=== PATIENT | female | born 1995 | race Caucasian/White ===

== ENCOUNTER 2020-08-09 21:11 | Observation (INO) | payer BC, SELFPAY ==
--- NOTE | 2020-08-09 21:11 | OBADM ---
This patient, Lou Byers, admitted to the OB room Labor/Delivery/Recovery 107 for observation. Patient/family oriented to hospital policies and general routines including ID bracelet, bed and alarms, visiting hours, pain management, procedures, bathroom and other care routines, personal items, smoking policy, room service/diet, and visiting hours. Patient/Family are encouraged to report perceived risks to care and to ask questions if they do not understand what they are told or what they should do.
[2020-08-10 00:59] VITALS: BMI 26.5
--- NOTE | 2020-09-02 19:45 | PM.OBTRLD ---
OB - Triage/Final Diagnosis Final Diagnosis (1) Uterine contractions: Status: Acute
== END 2020-08-10 01:08 | disposition home or self-care (01) ==
PROVIDERS: Admitting Provider Obstetrics & Gynecology; Visit Provider Obstetrics & Gynecology
DX: O60.00 Preterm labor without delivery, unspecified trimester (principal); Z3A.00 Weeks of gestation of pregnancy not specified
CPT/HCPCS: G0378; G0379

== ENCOUNTER 2020-08-20 06:09 | Inpatient (IN) | payer BC, SELFPAY ==
[2020-08-20] VITALS (103 sets, daily range): BP systolic 96–160; BP diastolic 46–95; PULSE 62–149; RESP 16–18; TEMP 36.4–37.7; O2SAT 91–100; BMI 26.2
[2020-08-20 06:47] LABS: Basophils Absolute Auto 0.1 K/mm3 (0.0-0.1); Basophils Percent Auto 0.7 % (0.2-1.2); Eosinophils Absolute Auto 0.4 K/mm3 (0-0.3); Eosinophils Percent Auto 2.7 % (0-4.4); Hematocrit 34.6 % (37.0-47.0); Hemoglobin 11.4 g/dL (12.0-15.0); Immature Granulocyte Absolute 0.19 K/mm3 (0.00-0.031); Immature Granulocyte Percent A 1.4 % (0-0.5); Immature Platelet Fraction Pct 21.8 % (0.9-11.2); Lymphocytes Absolute Auto 2.55 K/mm3 (0.9-3.2); Lymphocytes Percent Auto 18.8 % (18.3-44.2); Mean Corpuscular HGB Conc 32.9 g/dl (32-36); Mean Corpuscular Hemoglobin 28.9 pg (26-34); Mean Corpuscular Volume 87.6 fl (80-100); Monocytes Percent Auto 7.1 % (2.6-8.5); Neutrophils Absolute Auto 9.4 K/mm3 (1.3-6.7); Neutrophils Percent Auto 69.3 % (45.5-73.1); Platelet Count Result 164 k/mm3 (150-375); Red Blood Count 3.95 M/mm3 (4.2-5.4); Red Cell Distribution Width 12.9 % (11.5-14.5); White Blood Count 13.6 K/mm3 (4.5-10.0)
[2020-08-20] MEDS: LACTATED RINGERS 1,000 ML 125 ML IV CONT ×2 (06:49→10:03)
[2020-08-20] MEDS: OXYTOCIN 30 UNITS/NS 500 ML 30 UNITS/500 ML BAG 4 UNITS IV CONT (06:55)
--- NOTE | 2020-08-20 07:02 | LDADM ---
This patient, Lou Byers, was admitted to Labor/Delivery/Recovery 106 on 08/20/20 at 06:09. Plans for labor, pain management and were discussed with patient. Patient/family oriented to hospital policies and general routines including ID bracelet, bed and alarms, visiting hours, pain management, procedures, bathroom and other care routines, personal items, smoking policy, room service/diet and guest tray routines, infant security routines, and visiting hours. Patient/Family are encouraged to report perceived risks to care and to ask questions if they do not understand what they are told or what they should do. See OBIX for further documentation.
--- NOTE | 2020-08-20 07:46 | WPDOBADMIT ---
Obstetrics - Admit Note Admission Note: 25 y/o G1 @ 40w2d here for elective induction of labor. record reviewed. No pertinent additions to the history and/or any subsequent changes in the physical findings that are not consistent with the expected course of the were found. Additions to the history and/or subsequent changes in the physical findings follow. None.
--- NOTE | 2020-08-20 07:47 | PM.OBPNLAB ---
Pain Control Date/time seen: 08/20/20 07:47 4100/-2 AROM moderate amount of clear odorless fluid.
[2020-08-20] MEDS: fentaNYL CITRATE INJ (*CRX) 100 MCG/2 ML VIAL IV PUSH (07:53)
[2020-08-20] MEDS: ONDANSETRON INJ 4 MG/2 ML VIAL IV PUSH (07:53)
[2020-08-20] MEDS: LACTATED RINGERS 1,000 ML 999 ML IV CONT (07:58)
[2020-08-20 12:08] LABS: Rapid Plasma Reagin Non-Reactive (NonReactive)
--- NOTE | 2020-08-20 15:33 | P.PCNOB_ITS ---
OB - Delivery Note Procedure Delivery date: 08/20/20 Intrapartal events: None Induction method: per pitocin protocol Delivery monitor: external FHT and external uterine Route of delivery: Laceration Description: Perineal - 2nd Degree Delivery repair: vicryl Quantitative Blood Loss (ml): 93 Anesthesia type: Epidural [place] Baby Date of : 08/20/20 Time of : 14:49 Weeks of gestation at delivery: 40 Infant gender: Female Weight (pounds): 7 Weight (ounces): 15 presentation: vertex position: Left Occiput Anterior Placenta delivery description: Spontaneous score one minute: 8 score five minutes: 9 Narrative: Called over to evaluate d/t pt pushing for 2.5 hours with little progress. Per staff pt has very poor and disorganized push effort and possible posterior position. We were able to see significant progress within 10 minutes of my arrival and decided to proceed with pushing. Delivery per Z. Due SNM. not vigorous initially so cord was clamped then infant became vigorous. Mother and baby in stable condition. Cord gasses collected and handed off to staff.
[2020-08-20] MEDS: OXYTOCIN 30 UNITS/NS 500 ML 30 UNITS/500 ML BAG 125 UNITS IV CONT (15:43)
[2020-08-20] MEDS: IBUPROFEN 600 MG TABLET PO (16:26)
[2020-08-20] MEDS: WITCH HAZEL 40 PADS 1 PAD TOPICAL (16:27)
[2020-08-20] MEDS: BENZOCAINE 20% AER SPR (*SP) 56 GM CAN 1 SPRAY TOPICAL (16:27)
--- NOTE | 2020-08-20 18:27 | PC.NURSE ---
Patient transferred to post room #291 via wheelchair. Support person present. Oriented to unit, room, information board, rooming in, admission packet and security measures. Patient verbalizes understanding.
[2020-08-20] MEDS: ACETAMINOPHEN 325 MG TABLET 650 MG PO (18:52)
[2020-08-21] MEDS: IBUPROFEN 600 MG TABLET PO ×3 (01:55→17:15)
[2020-08-21 04:44] LABS: Hemoglobin 9.2 g/dL (12.0-15.0)
--- NOTE | 2020-08-21 07:16 | PM.OBPNVD ---
OB - PN: Subj Subjective Date/time seen: 08/21/20 07:16 Patient comments: no complaints baby status: doing well [place] feeding status: exclusively bottle feeding Narrative: Normal lochia. E/A/V. OB - PN: Obj Data Labs CBC & Chem 7: 08/21/20 03:59 Labs: Laboratory Results - last 24 hr 08/20/20 08/20/20 08/21/20 06:35 06:35 03:59 Hgb 9.2 L Hct 28.0 L RPR Non-reactive Blood Type O Positive Antibody Screen Negative OB - PN A/P Plan day: 1 Plan: routine care Comments: Doing well. Home tomorrow. Time Spent With Patient Time: Total time spent is greater than 50% in coordination of care (as documented) at patient's floor/unit and/or counseling patient: Time with patient: less than 15 minutes Exam Narrative: Exam Narrative: NAD abdomen soft, nontender, fundus firm below the umbilicus Extremities nontender, 1+ edema
[2020-08-21 08:00] VITALS: BP 114/75; PULSE 60; RESP 16; TEMP 36.6; O2SAT 94
[2020-08-21] MEDS: POLYSACCHARIDE IRON COMPLEX 150 MG CAPSULE PO ×2 (08:50→17:15)
[2020-08-21] MEDS: DOCUSATE SODIUM 100 MG CAPSULE PO ×2 (08:50→17:15)
--- NOTE | 2020-08-21 11:05 | WPDANLDPN2 ---
Anes-Prog Note L&D Date/Time: 08/21/20 11:05 Comfortable throughout: labor and delivery Neuraxial method: epidural Epidural/Spinal procedure site: clean & non-tender Neuro status: Neuro function grossly intact. Cardiovascular status: normal Respiratory status: normal Airway patency: baseline Mental status: baseline Post-Op hydration status: normal Vital Signs: Last Vital Signs Temp 36.6 C 08/21/20 08:00 Pulse 60 08/21/20 08:00 Resp 16 08/21/20 08:00 BP 114/75 08/21/20 08:00 Pulse Ox 94 08/21/20 08:00 Pain score (VAS): 0 I/O: Intake & Output 08/20/20 08/21/20 08/21/20 23:59 07:59 15:59 Output Total 93 Balance -93 Post-procedural complaints: none Patient feedback: Patient satisfied with anesthetic care.
[2020-08-21] MEDS: ACETAMINOPHEN 325 MG TABLET 650 MG PO (13:09)
[2020-08-21 20:00] VITALS: BP 117/62; PULSE 66; RESP 16; TEMP 36.2; O2SAT 99
[2020-08-22] MEDS: IBUPROFEN 600 MG TABLET PO ×2 (01:10→08:31)
[2020-08-22] MEDS: ACETAMINOPHEN 325 MG TABLET 650 MG PO (01:10)
--- NOTE | 2020-08-22 07:56 | PM.OBPNVD ---
OB - PN: Subj Subjective Date/time seen: 08/22/20 07:56 Patient comments: no complaints baby status: doing well OB - PN: Obj Data Labs CBC & Chem 7: 08/21/20 03:59 OB - PN A/P Plan day: 2 Plan: routine care and discharge home (F/U in 4 weeks) Time Spent With Patient Time: Total time spent is greater than 50% in coordination of care (as documented) at patient's floor/unit and/or counseling patient: Time with patient: less than 15 minutes Review of Systems Review of Systems: All systems reviewed & are unremarkable except as noted in HPI and below Exam Narrative: Exam Narrative: Fundus firm and vaginal flow controlled. No lower ext redness, warmth, or edema. Negative homans. Const: General: comfortable Chest: Breast/axilla inspection: normal inspection of the breasts Resp: Effort & Inspection: normal respiratory effort Cardio: Rate: regular rate GI: GI Palp: Yes Soft to palpation Psych: Appearance: grossly normal Affect: normal affect Attitude: cooperative Thought content: Yes Normal thought content present Judgement: Good judgement present (Psych)
[2020-08-22] MEDS: DOCUSATE SODIUM 100 MG CAPSULE PO (08:32)
[2020-08-22] MEDS: POLYSACCHARIDE IRON COMPLEX 150 MG CAPSULE PO (08:32)
[2020-08-22 08:40] VITALS: BP 123/87; PULSE 64; RESP 18; TEMP 36.9
[2020-08-23 08:07] VITALS: BP 127/87; PULSE 73; RESP 20; TEMP 36.8; O2SAT 100
--- NOTE | 2020-09-12 08:05 | P.DS_ITS ---
DS: Admitting Diagnosis Admitting Diagnosis Admitting Diagnosis: Elective induction DS: Discharge Diagnosis Discharge Diagnosis (1) Vaginal delivery: Code(s): O80 - Encounter for full-term uncomplicated delivery Status: Acute OB - DS: Summary OB Procedures : None OB Procedures Intrapartum: Spontaneous Vag Delivery OB Procedures: : None Time Spent with Patient Time attestation: Total time spent providing and/or coordinating discharge services: Discharge Plan Discharge Attending physician on discharge: Emily Lara Consulting providers: Emily Lara ; Milagros Garcia Discharging Clinician: Emily Lara Patient Disposition: Home, Self-Care Activity: pelvic rest Diet: as tolerated Discharge Instructions: Education: Mom and Baby Guide Given to: Mother Follow-Up: Call your delivering provider's office for an appointment to be seen in: Call office for appointment Mom and baby should come to the [facility] for the follow-up appointment. Appointment Date/Time: August 23, 2020 at 8:00 am What to expect at your follow-up visit: Blood Pressure Check Physical Assessment Call [phone] if you are unable to keep your appointment time. BREAST CARE: * Wear a snug supportive bra. * For engorgement discomfort: Breast Feeding: * Apply warm moist washcloths * Express milk as needed to relieve engorgement * Wear loose clothing Bottle Feeding: * May apply ice packs EPISIOTOMY/PERINEAL CARE: * Until bleeding stops, use your christina bottle after urinating * Change your pad frequently throughout the day * You may take sitz baths several times a day (fill your bathtub with warm water and soak for 20 minutes.) Do NOT bathe in the water * No tub baths until seen by your physician - You may shower ACTIVITY: * Rest as much as possible. * Do not exercise or lift anything heavier than your baby (such as laundry or other children.) * Avoid stairs or driving as much as possible. * Do not put anything into the vagina. No douching, tampons, or sexual activity until seen by physician. NOTIFY PHYSICIAN IF YOU HAVE ANY QUESTIONS OR IF ANY OF THE FOLLOWING SYMPTOMS OCCUR: * If your episiotomy or incision becomes red, swollen, or more painful than what you have experienced in the hospital. * If your vaginal bleeding becomes foul smelling. * If your vaginal bleeding becomes more heavy than a period or if your bleeding changes from pink to bright red. However, you may pass an occasional walnut- sized clot once or twice for the first week . * If you experience a sharp, shooting pain in you calves. * If you discover a hard, reddened area on your breast or if you experience flu- like symptoms. DIET: * Eat regular, well-balanced meals. * Drink plenty of fluids daily. If , drink to thirst. Stand Alone Forms: General Discharge Information Follow-up/Referrals: Emily Lara CNM [Certified Nurse Platform Power Technician] - Discharge Medications: New polysaccharide iron complex 150 mg iron Capsule 150 mg PO BIDWM Qty: 30 RF: 0 Continued PNV cmb#95-ferrous fumarate-FA [] 28 mg iron- 800 mcg Tablet 1 tablet PO DAILY RF: 0 Date of admission: 08/20/20 06:09 Primary Care Provider: PHYSICIAN,AUTOMATIC SPREADER OPERATOR Admitting Provider: Rita Nj Attending physician on admission: Natasha
== END 2020-08-22 11:10 | disposition home or self-care (01) | DRG 807 ==
LOC: ANHLDR 06:11 → ANHOB2 18:09
PROVIDERS: Advanced Practice Midwife; Admitting Provider Obstetrics & Gynecology; Visit Provider Obstetrics & Gynecology
DX: O70.1 Second degree perineal laceration during delivery (principal); Z37.0 Single live birth; Z3A.40 40 weeks gestation of pregnancy; Z23 Encounter for immunization
CPT/HCPCS: 36415; 85014; 85018; 85025; 85055; 86592; 86850; 86900; 86901; 90471; 90653; A9270; G0008; J2405; J2590; J2795; J3010; J7120

== ENCOUNTER 2023-07-21 06:33 | Observation (INO) | payer BC, SELFPAY ==
[2023-07-21] VITALS (11 sets, daily range): BP systolic 105–121; BP diastolic 60–76; PULSE 63–146; O2SAT 96–100; BMI 25.0
[2023-07-21 07:17] LABS: Appearance Urine Cloudy (Clear); Bacteria Urine 1+ /hpf; Bilirubin Urine Negative (Negative); Blood Urine Negative (Negative); Color Urine Yellow (Yellow); Glucose Urine UA Negative (Negative); Ketones Urine Trace mg/dL (Negative); Leukocyte Esterase Ur 1+ LEU/UL (Negative); Nitrate Urine Negative (Negative); Non Pathogenic Casts 0-2; Protein Urine Trace mg/dL (Negative); RBC Urine 0-2 /hpf (0-2); Specific Grav Ur 1.014 (1.001-1.035); Squamous Epithelial Cell Urine Moderate /hpf (Few); WBC Urine 21-50 /hpf
[2023-07-21 07:27] LABS: Add Urine Microscopic? YES
[2023-07-21] MEDS: DEXTROSE 5%/LACTATED RINGERS 1,000 ML 999 ML IV CONT (07:28)
[2023-07-21] MEDS: ACETAMINOPHEN 500 MG TABLET 1000 MG PO (07:29)
[2023-07-21] MEDS: ONDANSETRON INJ 4 MG/2 ML VIAL IV PUSH (07:29)
[2023-07-21] MEDS: FAMOTIDINE 20 MG/2 ML VIAL IV PUSH (07:29)
--- NOTE | 2023-07-21 07:38 | ADMGEN ---
This patient, Lou Byers, was admitted to OB Post 116-00. Patient/family oriented to hospital policies and general routines including ID bracelet, bed and alarms, visiting hours, pain management, procedures, bathroom and other care routines, personal items, smoking policy, room service/diet, and visiting hours. Information on how to activate the Rapid Response Team has been discussed. Patient/Family are encouraged to report perceived risks to care and to ask questions if they do not understand what they are told or what they should do.
--- NOTE | 2023-07-21 08:36 | PC.NURSE ---
Spoke with Dr. Nj regarding discharge of patient. Patient states symptoms have improved. Ok to discharge per Dr. Nj. Appointment for tomorrow scheduled with Lou Petersen.
--- NOTE | 2023-07-21 08:40 | PC.NURSE ---
see OBIX note for monitor tracing
--- NOTE | 2023-08-16 21:20 | P.PNOB_ITS ---
OB - Triage/Final Diagnosis Visit Information Comments/Additional reasons for admission: I have assessed the risk for this patient, Lou Byers, and determined that she would benefit from observation care. Evaluation Laboratory results: Laboratory Tests 07/21/23 07:04 Urine Color Yellow Urine Appearance Cloudy H Urine pH 8.0 Ur Specific [place] 1.014 Urine Protein Trace Urine Glucose (UA) Negative Urine Ketones Trace H Ur Blood (Man) Negative Urine Nitrate Negative Urine Bilirubin Negative Urine Urobilinogen 1.0 Leukocyte Esterase Rfl 1+ H Urine RBC 0-2 Urine WBC 21-50 H Ur Squamous Epith Cells Moderate Urine Bacteria 1+ H Urine Casts 0-2 Final Diagnosis (1) Nausea and vomiting: Code(s): R11.2 - Nausea with vomiting, unspecified Status: Acute
== END 2023-07-21 08:38 | disposition home or self-care (01) ==
PROVIDERS: Admitting Provider Obstetrics & Gynecology; PCP Advanced Practice Midwife; Visit Provider Obstetrics & Gynecology
DX: O21.0 Mild hyperemesis gravidarum (principal); Z3A.38 38 weeks gestation of pregnancy; O36.8130 Decreased fetal movements, third trimester, not applicable or unspecified
CPT/HCPCS: 81001; 87086; 87088; 96361; 96374; 96375; A9270; G0378; G0379; J2405; J7121

== ENCOUNTER 2023-07-23 16:55 | Inpatient (IN) | payer BC, SELFPAY ==
[2023-07-23] VITALS (94 sets, daily range): BP systolic 110–153; BP diastolic 58–108; PULSE 72–114; RESP 16; TEMP 36.6–37.3; O2SAT 69–100; BMI 25.0
--- NOTE | 2023-07-23 16:55 | LDADM ---
This patient, Lou Byers, was admitted to Labor/Delivery/Recovery 105 on 07/23/23 at 16:55. Plans for labor, pain management and were discussed with patient. Patient/family oriented to hospital policies and general routines including ID bracelet, bed and alarms, visiting hours, pain management, procedures, bathroom and other care routines, personal items, smoking policy, room service/diet and guest tray routines, infant security routines, and visiting hours. Patient/Family are encouraged to report perceived risks to care and to ask questions if they do not understand what they are told or what they should do. See OBIX for further documentation.
[2023-07-23] MEDS: LACTATED RINGERS 1,000 ML 125 ML IV CONT ×3 (17:33→21:13)
[2023-07-23 17:47] LABS: Basophils Absolute Auto 0.1 K/mm3 (0.0-0.1); Basophils Percent Auto 0.4 % (0.2-1.2); Eosinophils Absolute Auto 0.3 K/mm3 (0-0.3); Eosinophils Percent Auto 2.5 % (0-4.4); Hematocrit 33.2 % (37.0-47.0); Hemoglobin 10.1 g/dL (12.0-15.0); Immature Granulocyte Percent A 0.9 % (0-0.5); Immature Platelet Fraction Pct 24.2 % (0.9-11.2); Lymphocytes Absolute Auto 2.32 K/mm3 (0.9-3.2); Lymphocytes Percent Auto 20.4 % (18.3-44.2); Mean Corpuscular HGB Conc 30.4 g/dl (32-36); Mean Corpuscular Hemoglobin 25.7 pg (26-34); Mean Corpuscular Volume 84.5 fl (80-100); Mean Platelet Volume 13.8 fl (7.4-10.4); Monocytes Absolute Auto 0.9 K/mm3 (0.1-0.6); Monocytes Percent Auto 8.2 % (2.6-8.5); Neutrophils Absolute Auto 7.7 K/mm3 (1.3-6.7); Neutrophils Percent Auto 67.6 % (45.5-73.1); Platelet Count Result 150 k/mm3 (150-375); Red Blood Count 3.93 M/mm3 (4.2-5.4); Red Cell Distribution Width 13.9 % (11.5-14.5); White Blood Count 11.4 K/mm3 (4.5-10.0)
--- NOTE | 2023-07-23 18:51 | WPDANESEPP ---
Anes - Eval Pre Procedure Procedure: Labor epidural Date/Time: 07/23/23 18:51 Surgeon: Clem Preop Diagnosis: Abdominal pain with contractions Pre Op Diagnosis: Labor Patient Data Age: 28 Gender: F Height: 1.6 m Weight: 64 kg Last Vital Signs Pulse 90 07/23/23 18:46 BP 137/91 H 07/23/23 18:46 Pulse Ox 98 07/23/23 18:48 Allergies Allergy/AdvReac Type Severity Reaction Status Date / Time No Known Allergies Allergy Verified 07/21/23 07:47 Home Medications Medication Instructions Recorded Confirmed Type vit no.95-ferrous 1 tablet PO DAILY 07/19/20 07/23/23 History fumarate 28 mg-folic acid 800 mcg tablet () polysaccharide iron complex 150 mg 150 mg PO BIDWM #30 caps 08/22/20 07/23/23 Rx iron capsule levothyroxine 50 mcg tablet 50 mcg PO DAILY 07/06/23 07/21/23 History Laboratory Tests 07/23/23 17:27 WBC 11.4 H K/mm3 (4.5-10.0) RBC 3.93 L M/mm3 (4.2-5.4) Hgb 10.1 L g/dL (12.0-15.0) Hct 33.2 L % (37.0-47.0) MCV 84.5 fl (80-100) MCH 25.7 L pg (26-34) MCHC 30.4 L g/dl (32-36) RDW 13.9 % (11.5-14.5) Plt Count 150 k/mm3 (150-375) MPV 13.8 H fl (7.4-10.4) Immature Gran % (Auto) 0.9 H % (0-0.5) Neut % (Auto) 67.6 % (45.5-73.1) Lymph % (Auto) 20.4 % (18.3-44.2) [place] % (Auto) 8.2 % (2.6-8.5) Eos % (Auto) 2.5 % (0-4.4) Baso % (Auto) 0.4 % (0.2-1.2) Lymph # (Auto) 2.32 K/mm3 (0.9-3.2) [place] # (Auto) 0.9 H K/mm3 (0.1-0.6) Eos # (Auto) 0.3 K/mm3 (0-0.3) Baso # (Auto) 0.1 K/mm3 (0.0-0.1) Abs Immat Gran (auto) 0.10 H K/mm3 (0.00-0.031) Absolute Neuts (auto) 7.7 H K/mm3 (1.3-6.7) Absolute Nucleated RBC 0.0 K/mm3 (0.0-0.012) Nucleated RBC % 0.0 % (0.0-0.2) % Immature Plt Fraction 24.2 H % (0.9-11.2) RPR Pending Blood Type O Positive Antibody Screen Pending : gestational age HCG: positive Patient hx anesthesia problems: none Family hx anesthesia problems: none Results Review: All pre-operative results and documents have been reviewed as part of the pre-operative evaluation. [facility] Past Medical History Medical History (Updated 07/23/23 @ 18:51 by Eddie Lubin CRNA) Hypothyroidism and not yet delivered Family History Family History Other No pertinent family history Social History Social History Smoking status: Never smoker Second hand tobacco smoke exposure: No Substance use: never Lack of Transportation: No Lack of Food: Never True Current Housing: I Have Housing Concerned About Future Housing: No Difficulty Paying Gas/Electric Bills: No Difficulty Paying for Meds: No Currently Unemployed: No Education: High School Diploma/GED Difficulty w/ Childcare or Family Care: No Gender identity (if verbalized by the patient): Female Spiritual care concerns: No Exam Day of Procedure 07/23/23 18:51 Patient weight: normal
[2023-07-24] VITALS (126 sets, daily range): BP systolic 114–145; BP diastolic 62–95; PULSE 65–104; RESP 16; TEMP 36.2–37.2; O2SAT 79–100
[2023-07-24] MEDS: OXYTOCIN 30 UNITS/NS 500 ML 30 UNITS/500 ML BAG IV CONT (05:10)
[2023-07-24] MEDS: LACTATED RINGERS 1,000 ML 125 ML IV CONT (05:26)
--- NOTE | 2023-07-24 07:30 | WPDOBADMIT ---
Obstetrics - Admit Note Admission Note: record reviewed. No pertinent additions to the history and/or any subsequent changes in the physical findings that are not consistent with the expected course of the were found. Pt arrived in labor, comfortable with epidural. SVE 5/80/-2 AROM large amount of clear, odorless fluid, anticipate vaginal delivery Additions to the history and/or subsequent changes in the physical findings follow. None.
--- NOTE | 2023-07-24 09:15 | P.PCNOB_ITS ---
OB - Vaginal Delivery Note Procedure Delivery date: 07/24/23 Delivery augmentation: Rupture of Membranes and Pitocin Delivery monitor: External FHT and Internal FHT Route of delivery: Laceration Description: None Specimen: No Quantitative Blood Loss (ml): 75 Anesthesia type: Epidural Disposition: Floor [place] Baby Date of : 07/24/23 Time of : 09:06 Weeks of gestation at delivery: 38 gender: Female presentation: vertex position: Left Occiput Anterior Placenta delivery description: Spontaneous Cord Vessel Description: 3 Vessels and Delayed Cord Clamping score one minute: 8 score five minutes: 9 Narrative: baby and mother in stable condition
[2023-07-24] MEDS: OXYTOCIN 30 UNITS/NS 500 ML 30 UNITS/500 ML BAG 125 UNITS IV CONT (09:30)
[2023-07-24] MEDS: IBUPROFEN 600 MG TABLET PO ×3 (10:45→23:00)
[2023-07-24] MEDS: ACETAMINOPHEN 325 MG TABLET 650 MG PO (10:46)
--- NOTE | 2023-07-24 12:29 | OBPPTRN ---
1223-Patient transferred to post room #282 via wheelchair. Support person present. Oriented to unit, room, information board, rooming in, admission packet and security measures. Patient verbalizes understanding.
[2023-07-24 15:18] LABS: Rapid Plasma Reagin Non-Reactive (NonReactive)
[2023-07-24] MEDS: DOCUSATE SODIUM 100 MG CAPSULE PO (16:55)
[2023-07-25] MEDS: IBUPROFEN 600 MG TABLET PO (04:25)
[2023-07-25 05:38] LABS: Hematocrit 32.7 % (37.0-47.0); Hemoglobin 9.8 g/dL (12.0-15.0)
--- NOTE | 2023-07-25 06:42 | PM.OBPNVD ---
OB - PN: Subj Subjective Date/time seen: 07/25/23 06:42 Interval history: pp day 1 doing well pain managed OB - PN: Obj Data Labs 07/25/23 04:16 Labs: Laboratory Results - last 24 hr 07/23/23 07/25/23 17:27 04:16 Hgb 9.8 L Hct 32.7 L RPR Non-reactive OB - PN A/P Plan day: 1 Plan: routine care and discharge home Time Spent With Patient Time: Total time spent is greater than 50% in coordination of care (as documented) at patient's floor/unit and/or counseling patient: Review of Systems Review of Systems: All systems reviewed & are unremarkable except as noted in HPI and below Exam Const: General: cooperative, healthy appearing and comfortable Resp: Effort & Inspection: normal respiratory effort Cardio: Rate: regular rate Rhythm: regular rhythm GI: Other: soft Skin: General skin exam: normal color
--- NOTE | 2023-07-25 06:44 | PM.OBDSVD ---
DS: Admitting Diagnosis Discharge Date 07/25/23 Admitting Diagnosis labor DS: Discharge Diagnosis Discharge Diagnosis (1) Vaginal delivery: Code(s): O80 - Encounter for full-term uncomplicated delivery Status: Acute OB - DS: Summary OB Procedures : None OB Procedures Intrapartum: Spontaneous Vag Delivery OB Procedures: : None Peripartum Data Laceration Description: None Time Spent with Patient Time attestation: Total time spent providing and/or coordinating discharge services: DS: Data Data Completed and Pending Labs on day of discharge: Labs from last 24 hours 07/25/23 07/23/23 04:16 17:27 Hgb 9.8 L Hct 32.7 L RPR Non-reactive Discharge Plan Discharge Attending physician on discharge: Rita Nj Discharging Clinician: Lou Petersen Patient Disposition: Home, Self-Care Activity: pelvic rest Diet: regular Patient Instructions: Antibiotic Form Stand Alone Forms: General Discharge Information Follow-up/Referrals: Lou Petersen CNM [Primary Care Provider] - 4 Weeks Discharge Medications: New ibuprofen 600 mg Tablet 600 mg PO Q6H PRN (Reason: Cramping) Qty: 30 0RF Continued PNV cmb#95-ferrous fumarate-FA [] 28 mg iron- 800 mcg Tablet 1 tablet PO DAILY polysaccharide iron complex 150 mg iron Capsule 150 mg PO BIDWM Qty: 30 0RF levothyroxine 50 mcg Tablet 50 mcg PO DAILY Date of admission: 07/23/23 16:55 Primary Care Provider: Lou Petersen Admitting Provider: Rita Nj Attending physician on admission: Rita Nj Condition: Stable
[2023-07-25] MEDS: POLYSACCHARIDE IRON COMPLEX 150 MG CAPSULE PO (09:22)
[2023-07-25 09:23] VITALS: BP 137/88; PULSE 61; RESP 16; TEMP 36.4; O2SAT 100
[2023-07-25] MEDS: DOCUSATE SODIUM 100 MG CAPSULE PO (09:23)
[2023-07-25] MEDS: ACETAMINOPHEN 325 MG TABLET 650 MG PO (09:23)
--- NOTE | 2023-07-25 12:59 | WPDANLDPN2 ---
Anes-Prog Note L&D Date/Time: 07/25/23 12:59 Comfortable throughout: labor and delivery Neuraxial method: epidural Epidural/Spinal procedure site: clean & non-tender Neuro status: Neuro function grossly intact. Cardiovascular status: normal Respiratory status: normal Airway patency: baseline Mental status: baseline Post-Op hydration status: normal Vital Signs: Last Vital Signs Temp 97.9 F 07/24/23 23:00 Pulse 70 07/24/23 23:00 Resp 16 07/24/23 23:00 BP 114/62 07/24/23 23:00 Pulse Ox 100 07/24/23 16:00 O2 Del Method Room Air 07/24/23 23:00 Pain score (VAS): 0 I/O: Intake & Output 07/24/23 07/25/23 07/25/23 23:59 07:59 15:59 Intake Total 350 Balance 350 Post-procedural complaints: none Patient feedback: Patient satisfied with anesthetic care.
[2023-07-27 11:30] VITALS: BP 132/94; PULSE 72; RESP 18; TEMP 37.3; O2SAT 100
== END 2023-07-25 14:28 | disposition home or self-care (01) | DRG 807 ==
LOC: ANHLDR 07-24 08:40 → ANHOB2 07-24 12:24
PROVIDERS: Admitting Provider Obstetrics & Gynecology; PCP Advanced Practice Midwife; Referring Provider Advanced Practice Midwife; Visit Provider Obstetrics & Gynecology
DX: O43.113 Circumvallate placenta, third trimester (principal); Z37.0 Single live birth; Z3A.38 38 weeks gestation of pregnancy
CPT/HCPCS: 36415; 85014; 85018; 85025; 85055; 86592; 86850; 86900; 86901; A9270; J2590; J2795; J7120

== ENCOUNTER 2023-11-15 20:53 | Emergency (ER) | payer BC, SELFPAY ==
--- NOTE | ~2023-11-15 | XR_ITS ---
Clinical Indication: Cough PA and lateral views of the chest: Comparison: None Findings: The lungs are clear, without evidence of focal consolidation or pleural effusion. Cardiome diastinal silhouette is within normal limits. Bones and soft tissues are unremarkable. Impression: Clear lungs. Reviewed, dictated and finalized at location . Impression: Clear lungs.
--- NOTE | ~2023-11-15 | CT_ITS ---
CT of the Abdomen and Pelvis: Indication: Abdominal pain Technique: 2.5 mm axial scans were obtained through the abdomen and pelvis following intravenous adm inistration of 100 cc of Omnipaque 350. Dose reduction technique was used on this scan by utilizing a utomated exposure control and iterative reconstruction technique. The dose-length product (DLP) was 1 96.19 mGy-cm. Findings: Scans through the lung bases are unremarkable. The liver, spleen, pancreas, gallbladder, adrenals and kidneys are within normal limits. No evidence of aortic aneurysm. No lymphadenopathy. No bowel obstruction or bowel wall thickening. No definite acute inflammatory process seen in the abd omen pelvis. Images through the pelvis were performed. Urinary bladder unremarkable. No pelvic mass seen. No ascit es. Impression: No significant abnormalities seen. Reviewed, dictated and finalized at [facility]. Impression: No significant abnormalities seen.
[2023-11-15 20:57] VITALS: BP 128/110; PULSE 126; RESP 18; TEMP 36.4; O2SAT 98
[2023-11-15 21:18] LABS: Basophils Absolute Auto 0.1 K/mm3 (0.0-0.1); Basophils Percent Auto 0.7 % (0.2-1.2); Eosinophils Absolute Auto 0.6 K/mm3 (0-0.3); Eosinophils Percent Auto 3.4 % (0-4.4); Hematocrit 48.3 % (37.0-47.0); Hemoglobin 15.9 g/dL (12.0-15.0); Immature Granulocyte Absolute 0.12 K/mm3 (0.00-0.031); Immature Granulocyte Percent A 0.6 % (0-0.5); Immature Platelet Fraction Pct 21.9 % (0.9-11.2); Lymphocytes Absolute Auto 2.81 K/mm3 (0.9-3.2); Lymphocytes Percent Auto 15.2 % (18.3-44.2); Mean Corpuscular HGB Conc 32.9 g/dl (32-36); Mean Platelet Volume 13.4 fl (7.4-10.4); Monocytes Absolute Auto 1.2 K/mm3 (0.1-0.6); Monocytes Percent Auto 6.7 % (2.6-8.5); Neutrophils Absolute Auto 13.6 K/mm3 (1.3-6.7); Neutrophils Percent Auto 73.4 % (45.5-73.1); Platelet Count Result 221 k/mm3 (150-375); Red Blood Count 5.49 M/mm3 (4.2-5.4); Red Cell Distribution Width 12.7 % (11.5-14.5); White Blood Count 18.5 K/mm3 (4.5-10.0)
[2023-11-15 21:24] LABS: Alanine Aminotransferase 28 U/L (6-35); Albumin Level 5.2 g/dL (3.5-5.1); Alkaline Phosphatase 91 U/L (38-126); Anion Gap 12 mmol/L (8-16); Aspartate Amino Transferase 24 U/L (14-36); Bilirubin,Total 0.9 mg/dL (0.2-1.3); Blood Urea Nitrogen 7 mg/dL (7-17); Calcium 9.7 mg/dL (8.4-10.2); Carbon Dioxide 23 mmol/L (22-30); Chloride 107 mmol/L (98-107); Estimated CRCL calculation 75 ml/min; Estimated Glomerular Filt Rate > 60; Glucose 103 mg/dL (65-110); Lipase 72 U/L (23-300); Potassium 3.6 mmol/L (3.4-5.0); Sodium 142 mmol/L (137-145)
[2023-11-15 21:54] VITALS: BP 127/97; PULSE 108; RESP 13; TEMP 36.7; O2SAT 98
[2023-11-15] MEDS: SODIUM CHLORIDE 0.9% IV 1,000 ML 999 ML IV CONT (22:16)
[2023-11-15] MEDS: ONDANSETRON INJ 4 MG/2 ML VIAL IV PUSH (22:16)
[2023-11-15 22:36] LABS: Appearance Urine Cloudy (Clear); Bacteria Urine 1+ /hpf; Bilirubin Urine Negative (Negative); Blood Urine Negative (Negative); Color Urine Yellow (Yellow); Glucose Urine UA Negative (Negative); Ketones Urine 1+ mg/dL (Negative); Leukocyte Esterase Ur 1+ LEU/UL (Negative); Nitrate Urine Negative (Negative); Protein Urine 2+ mg/dL (Negative); RBC Urine 0-2 /hpf (0-2); Specific Grav Ur 1.015 (1.001-1.035); Squamous Epithelial Cell Urine Few /hpf (Few); Urobilinogen Urine 0.2 mg/dL (<2.0); WBC Urine 21-50 /hpf
[2023-11-15 22:37] LABS: Add Urine Microscopic? YES
--- NOTE | 2023-11-15 22:42 | ED.NAVMDI ---
HPI - Nausea/Vomiting/Diarrhea General Chief complaint: Nausea/Vomiting/Diarrhea Stated complaint: n/v, congestion Time Seen by Provider: 11/15/23 21:56 Source: patient Mode of arrival: ambulatory Limitations: no limitations History of Present Illness HPI Narrative: This is a 28-year-old female that presents to emergency department for symptoms ongoing since this morning. Reports rhinorrhea and congestion. Reports she then developed nausea and vomiting. She has not been able to keep anything down. Denies fever, cough, shortness of breath, diarrhea. Related Data Home Medications Medication Instructions Recorded Confirmed vit no.95-ferrous 1 tablet PO DAILY 07/19/20 07/23/23 fumarate 28 mg-folic acid 800 mcg tablet () levothyroxine 50 mcg tablet 50 mcg PO DAILY 07/06/23 07/21/23 Allergies Allergy/AdvReac Type Severity Reaction Status Date / Time No Known Allergies Allergy Verified 07/21/23 07:47 Review of Systems Review of Systems: CONSTITUTIONAL: Denies fever ENT: Reports rhinorrhea, congestion CARDIOVASCULAR: Denies chest pain RESPIRATORY: Denies cough or dyspnea. GASTROINTESTINAL: Reports abdominal pain, nausea, vomiting. Denies diarrhea. GENITOURINARY: Denies dysuria All systems reviewed & are unremarkable except as noted in HPI and below PMFSH Past Medical History Medical History (Updated 11/16/23 @ 01:10 by Meme Garibay PA-C) Hypothyroidism and not yet delivered Family History Family History Other No pertinent family history Social History Social History Smoking status: Never smoker Second hand tobacco smoke exposure: No Substance use: never Lack of Transportation: No Lack of Food: Never True Current Housing: I Have Housing Concerned About Future Housing: No Difficulty Paying Gas/Electric Bills: No Difficulty Paying for Meds: No Currently Unemployed: No Education: High School Diploma/GED Difficulty w/ Childcare or Family Care: No Gender identity (if verbalized by the patient): Female Spiritual care concerns: No Exam Narrative: GENERAL: Well-appearing, well-nourished, and in no acute distress. HEAD: Normocephalic, atraumatic. EYES: EOMI. ENT: Nares clear, no rhinorrhea or epistaxis. Mucous membranes moist. Oropharynx without tonsillar hypertrophy exudate or other lesions. NECK: Supple. No adenopathy or masses. CHEST: No respiratory distress. Diffuse, expiratory wheezing. No rales or rhonchi HEART: Regular rate and rhythm. No murmur heard. Normal peripheral pulses. ABDOMEN: Soft, nondistended, normal active bowel sounds. Mild tenderness to palpation throughout the abdomen, without guarding EXTREMITIES: Normal range of motion. No edema. SKIN: Warm, dry, no rash. NEURO: No focal deficits. Alert and oriented x3. PSYCH: Normal mood and affect Course Course Emergency Course: Patient updated on her workup. Reports feeling much better. Able tolerate p.o. challenge Vital Signs Vital signs: Vital Signs Temperature 97.6 F 11/15/23 20:57 Pulse Rate 126 H 11/15/23 20:57 Respiratory Rate 18 11/15/23 20:57 Blood Pressure 128/110 H 11/15/23 20:57 Pulse Oximetry 98 11/15/23 20:57 Oxygen Delivery Room Air 11/15/23 20:57 Temperature 98.1 F 11/15/23 21:54 Pulse Rate 81 11/16/23 01:02 Respiratory Rate 15 11/16/23 01:02 Blood Pressure 118/71 11/16/23 01:02 Pulse Oximetry 100 11/16/23 01:02 Oxygen Delivery Room Air 11/15/23 20:57 MDM - Nausea/Vomiting/Diarrhea MDM Narrative Medical decision making narrative: Patient presents to the emergency department for abdominal pain, nausea and vomiting. Also endorsing congestion. Patient noted to be wheezing. She is afebrile and nontoxic appearing. Tachycardic upon arrival, this normalized with IV fluid administration. Oxyge
[2023-11-15 22:50] VITALS: PULSE 96; RESP 16
[2023-11-15] MEDS: IPRATROPIUM 0.5 MG/ALBUTEROL SULFATE 2.5 MG AMPUL.NEB 3 ML INHALATION (22:50)
[2023-11-15 23:00] VITALS: PULSE 90; RESP 16
[2023-11-15 23:06] LABS: Influenza A QL RT-PCR Negative (Negative); Influenza B QL RT-PCR Negative (Negative); RSV RNA, RT-PCR Negative (Negative); SARS-CoV-2 RNA PCR Negative (Negative)
[2023-11-15] MEDS: FAMOTIDINE 20 MG/2 ML VIAL IV PUSH (23:15)
[2023-11-15 23:18] VITALS: BP 111/85; PULSE 91; RESP 15; O2SAT 100
[2023-11-16 01:02] VITALS: BP 118/71; PULSE 81; RESP 15; O2SAT 100
== END 2023-11-16 01:23 | disposition home or self-care (01) ==
PROVIDERS: Emergency Medicine; Emergency Provider Physician Assistant; PCP Advanced Practice Midwife
DX: K52.9 Noninfective gastroenteritis and colitis, unspecified (principal); N30.00 Acute cystitis without hematuria; R06.2 Wheezing; Z20.822 Contact with and (suspected) exposure to COVID-19; E03.9 Hypothyroidism, unspecified
CPT/HCPCS: 36415; 71046; 74177; 80053; 81001; 81025; 83690; 85025; 85055; 87086; 87088; 87637; 94640; 96361; 96374; 96375; 99284; J2405; J7030; Q9967

== ENCOUNTER 2025-07-09 01:34 | Emergency (ER) | payer BC, SELFPAY ==
--- NOTE | ~2025-07-09 | XR_ITS ---
Examination: XR chest 1V portable Clinical History: Asthma, cough Comparison: 11/15/2003 Technique: Portable AP Findings: Heart size normal. Subtle interstitial markings right lower lobe. No acute bony abnormality. IMPRESSION: 1. Suspect right lower lobe pneumonitis. Consider PA and lateral films with deep inspiration and/or short interval follow up films. Reviewed, dictated and finalized at location R. OM[employer] SERVICE CONSULTANT IMPRESSION: 1. Suspect right lower lobe pneumonitis. Consider PA and lateral films with de ep inspiration and/or short interval follow up films.
--- OUTSIDE RECORDS SUMMARY | 2025-07-09 01:37 | XMS_ITS | Data Portability ---
Author Organization [facility] [place] Address [address] [place] [address] Assessment No assessment recorded. Plan of Treatment Reminders Order Date Submit Date Provider Last Modified By Organization Details Last Modified Time Details Appointments Injection DEPO 2024 10:00A M RN SCHEDULE Not available Not available Not available Lab None recorded. Referral None recorded. Procedures None recorded. Surgeries None recorded. Imaging None recorded. Medication Orders Depo-Prov era 150 mg/mL intramusc ular suspensio n 2024 025 [email or web address] [facility][id number], [address], [place], [id number], 05/18/2025 11:16:17 Depo-Prov era 150 mg/mL intramusc ular syringe 2024 025 [email or web address] [facility] #[id number], [address], [place], [phone], 02/27/2025 18:16:58 Depo-Prov era 150 mg/mL intramusc ular syringe 2024 025 [email or web address] Not available 12/12/2024 16:29:00 Depo-Prov era 150 mg/mL intramusc ular suspensio n 2024 025 [email or web address] Not available 09/28/2024 21:22:36 medroxypr ogesteron e 150 mg/mL intramusc ular suspensio n 2023 024 [email or web address] Not available 07/11/2024 10:03:16 Patient TargetsNo targets recorded. Patient InstructionsNo instructions recorded. Reason for Referral None Reported. 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 0 13:03:48 Intraute rine synechia e 254079600 Completed follow [facility] 3 13:15:35 Postpart um hemorrha ge 31137221 Completed Secondar y to bilobed placenta [facility] 3 13:15:35 Placenta circumva llata 0181241 Completed Serial growth [facility] 3 13:15:35 Anemia 735016318 Completed 1 tab slowfe daily [facility] 3 13:15:35 dysrhyth tung 707554457 Completed 06/16 u/s with MFM no longer needed per Beer - Normal FHR at appt on 06/15 [facility] 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 1 14:25:27 Pregnanc y 62168062 Completed 201909/04/2020 [facility] null, [facility] 3 13:15:40 Pregnanc y 16236132 Completed 202207/27/2023 Giovanni Gale [facility] 3 13:15:40 Hypothyr oidism 79414632 Active 2022 1 tab synthroi d 25 mcg- increase d to 50mcg 06/08 rpt TSH 4wks Giovanni Gale [facility] 3 13:14:34 Problem Notes None recorded. Procedures Surgical History Date Name Laterality Status Provider Name and Address Organization Details Recorded Time 12/08/2022 Date of Last Pap Smear completed Kizzy Ram [facility] 12/08/2022 16:57:11 Imaging Results None recorded. Procedure Notes None recorded. Medical Equipment None Reported. Allergies No known drug allergies Medications Name Sig Start Date Stop Date Status Note LastModified by Organization Details LastModified Time fluticasone 250 mcg-salmete rol 50 mcg/dose blistr powdr for inhalation 02/02 completed Not Available Not Available Not Available prednisone 20 mg tablet TAKE 2 TABLETS BY MOUTH DAILY FOR 5 DAYS 02/02 completed Not Available Not Available Not Available levothyroxi ne 25 mcg tablet TAKE 1 TABLET BY MOUTH EVERY DAY 09/04 completed Not Available Not Available Not Available amoxicillin 875 mg tablet TAKE 1 TABLET BY MOUTH EVERY 12 HOURS active Not Available Not Available No t Available metoclopram valeria 5 mg tablet TAKE 1 TABLET BY MOUTH EVERY 6 TO 8 HOURS NEEDED 09/04 completed Not Available Not Available Not Available Depo-Dry Finisher a 150 mg/mL intramuscul ar suspension Inject 1 mL every 3 months by intramusc ular route. 2024 active Not Available Not Available Not Avai lable levothyroxi ne 50 mcg tablet TAKE 1 TABLET BY MOUTH EVERY DAY DIRECTED 09/04 completed Not Available Not Available Not Available oseltamivir 75 mg capsule 02/08 completed Not Available Not Available Not Available ibuprofen 600 mg tablet TAKE 1 TABLET BY MOUTH EVERY 6 HOURS NEEDED FOR CRAMPING 09/04 completed Not Available Not Available Not Available albuterol sulfate HFA 90 mcg/actuati on aerosol inhaler INHALE 1 PUFF BY MOUTH EVERY 4 TO 6 HOURS NEEDED active Not Available Not Available No t Available ondansetron 4 mg disintegrat ing tablet DISSOLVE 1 TABLET ON THE TONGUE EVERY 8 HOURS NEEDED FOR NAUSEA OR VOMITING active Not Available Not Available No t Available fluticasone propionate 50 mcg/actuati on nasal spray,suspe nsion SPRAY 2 SPRAYS IN EACH NOSTRIL DAILY 02/02 completed Not Available Not Available Not Available amoxicillin 875 mg-potassiu m clavulanate 125 mg tablet TAKE 1 TABLET BY MOUTH EVERY 12 HOURS active Not Available Not Available No t Available Depo-Dry Finisher a 150 mg/mL intramuscul ar syringe Inject 1 mL every 3 months by intramusc ular route. 2024 active Not Available Not Available Not Avai lable nitrofurant oin monohydrate /macrocryst als 100 mg capsule TAKE 1 CAPSULE BY MOUTH EVERY 12 HOURS FOR 5 DAYS 02/02 completed Not Available Not Available Not Available 09/04 completed Not Available Not Available Not Available Vitals Date Recorded Body height Body mass index (BMI) Body weight Systolic And Diastolic Provider Name and Address Organization Details Last Updated DateTime 09/26/2024 157.48 cm 24.1 kg/m2 65473.19 g 125/75 mm[Hg] Kizzy Ram [facility] 09/28/2024 21:18:33 Date Recorded Body height Body mass index (BMI) Body weight Systolic And Diastolic Provider Name and Address Organization Details Last Updated DateTime 05/18/2025 157.48 cm 24.8 kg/m2 14680.41 g 119/79 mm[Hg] Kia Du [facility] 05/18/2025 11:14:17 Social History Question Answer Notes LastModified by Organizat ion Details LastModified Time Tobacco Smoking Status Never Smoker Malinda Armstrong [facility] 04/15/2023 15:24:05 Do You Have An Advance Directive? No [email or web address] Information n ot available 06/12/2021 If You Are , What Was Your Level Of Alcohol Consumption Prior To ? Occasional [email or web address] Information not available 04/15/2023 How Many Years Have You Consumed Alcohol? 7 [email or web address] Information not available 12/08/2022 Are You Blind Or Do You Have Difficulty Seeing? No [email or web address] Information n ot available 06/12/2021 What Is Your Level Of Caffeine Consumption? Heavy [email or web address] Information not available 06/12/2021 How Much Tobacco Do You Chew? None Information not available 06/12/2021 In The 14 Days Before Symptom Onset, Have You Had Close Contact With A Laboratory-confirm ed COVID-19 While That Case Was Ill? No [email or web address] Information n ot available 06/12/2021 In The 14 Days Before Symptom Onset, Have You Had Close Contact With A Person Who Is Under Investigation For COVID-19 While That Person Was Ill? No [email or web address] Information not available 06/12/2021 Have You Been To An Area Known To Be High Risk For COVID-19? No [email or web address] Information not available 06/12/2021 Are You Deaf Or Do You Have Serious Difficulty Hearing? No [email or web address] Information not available 06/12/2021 What Type Of Diet Are You Following? REGULAR Information n ot available 06/12/2021 What Is The Highest Grade Or Level Of School You Have Completed Or The Highest Degree You Have Received? FN93705-8 [email or web address] Information not available 06/12/2021 Are There Any Guns Present In Your Home? No [email or web address] Information not available 06/12/2021 What Was The Date Of Your Most Recent Tobacco Screening? 09/04/2023 [email or web address] Information not available 09/04/2023 Do You Use Protection During Sex? Always [email or web address] Information not available 06/12/2021 Do You Use Your Seat Belt Or Car Seat Routinely? Yes [email or web address] Information not available 06/12/2021 Do You Have Smoke And Carbon Monoxide Detectors In Your Home? Yes [email or web address] Information not available 06/12/2021 How Much Tobacco Do You Smoke? No [email or web address] Information not available 07/25/2020 Do You Use Sunscreen Routinely? Yes [email or web address] Information not available 06/12/2021 Have You Used IV Drugs? No [email or web address] Information not available 06/12/2021 Do You Have Difficulty Walking Or Climbing Stairs? No [email or web address] Information not available 04/15/2023 Sex: Unknown Functional Status Question Answer Note LastModified by Organizat ion Details LastModified Time Do you use any illicit or recreational drugs? No [email or web address] Information not available 06/12/2021 What is your level of alcohol consumption? None [email or web address] Information not available 12/08/2022 Do you or have you ever used smokeless tobacco? Never used [email or web address] tobacco Information not available 04/15/2023 Are you able to walk independently without assistance or assistive devices? YESWOREST [email or web address] Information not available 06/12/2021 Are you able to care for yourself independently? Yes [email or web address] Information not available 04/15/2023 What is your occupation? none [email or web address] Information not available 06/12/2021 Do you have difficulty dressing, bathing, grooming, or toileting? No [email or web address] Information not available 04/15/2023 Do you or have you ever used e-cigarettes or vape? Never used electronic cigarettes [email or web address] Information not available 04/15/2023 What is your exercise level? Occasional [email or web address] Information not available 12/29/2019 Mental Status Question Answer Note LastModified by Organization D etails LastModified Time Do you feel stressed (tense, restless, nervous, or anxious, or unable to sleep at night)? [id number] [email or web address] Information not available 06/12/2021 Family History Relationship Description Onset Age of this Age Resolved Age Notes LastModified by Organization Details LastModified Time Father No current problems or disability [email or web address] Not available 08/14 11:55:07 Mother No current problems or disability [email or web address] Not available 08/14 11:55:07 Medical History Condition Response Allergies (Food, seasonal, environmental ) N Other N Breast Cancer N Drug/Latex Allergies/Reactions N Blood Transfusion N Dermatologic Disorders N Lung Disease N Defects or Inherited Disease N Breast Problem N Gestational Diabetes N Hematologic disorders N Anesthesia Complications N History of STI N Deep Vein Thrombosis N Polycystic ovary syndrome N Anxiety Disorder N Autoimmune disease N Arthritis N Infertility N Polyps N Acid Reflux (GERD) N History of abnormal pap N Cancer N Stroke N Varicosities N Neurologic/Epilepsy N Endometriosis N High Cholesterol N Headaches N Fibromyalgia N Kidney Disease N Heart Problems N Kidney or Bladder Problems N Thyroid Problems N GI Problems N Eating Disorder N Anemia N Art (IVF or FET) N Psychiatric Illness N Ovarian Cancer N Diabetes N Pulmonary (TB, Asthma) N Hepatitis/Liver Disease N No Past Medical History Y Eczema N Urinary Tract Infection N Abuse/Domestic Violence N Asthma N Trauma/Violence N Depression/ depression N Heart Disease N Pre-Eclampsia N Hypertension N Osteoporosis N Thrombophilias N Gynecological History Statement/Question Response Abnormal Pap N Date of Last Mammogram Date of LMP 02/01/2024 On BCP's at Conception? N N Was last menstrual period normal Y STIs/STDs N HPV Vaccine N Colposcopy Current Control Method Depo-Dry Finisher a Age at First Child 25 Date of Last Colonoscopy Sexually Active? Y Date of DEXA bone scan Age of first menstrual cycle 12 Date of Last Pap Smear 12/08/2022 Sexual Problems? N LMP Approximate N Obstetrics History GPAL:G 2 P 2 0 0 2 Type Value Full Term 2 Living 2 Total 2 Past Encounters Encounter ID Performer Location Encounter Start Date Encounter Closed Date Diagnosis/Indication Diagnosis SNOMED-CT Code Diagnosis ICD10 Code Diagnosis IMO Codes Diagnosis Note [id number] Keenan Nj MD [facility] [address] [address] 12/29/2019 14:01:25 12/29/2019 16:51:43 screening 494613641 Z36.87 [id number] Emily Lara CNM [place] [address] [address] 12/29/2019 14:04:05 12/29/2019 16:54:33 test positive 298435853 Z32.01 Risk factors addressed: Tobacco Cessation, Safe Sexual Practices, environmen gilda, work hazards, travel restrictio ns, seat belt use.Eat a health well balanced diet, avoid alcohol, tobacco, and street drugs. Engage in daily low impact exercise, avoid temperatur e extremes, and cat, rodent, and bird feces.Avoi d travel to areas where zika virus is a concern.Fi rst look offered to patient. First look accepted by patient and will be scheduled. Sequential Screen handout given and discussed with patient. ildbirth classes recommende d.New OB sheet given. If previous , counseling .Pt verbalizes that she understand s the importance of above instructio ns.All questions were answered. Patient reminded to have annual well woman examinatio n and address preventati ve healthcare . [id number] MD Ramos Styles [address] [address] 02/09/2020 10:49:25 02/09/2020 11:42:02 screening 370607601 Z36.82 Z36.0 Z36.89 [id number] MD Ramos Styles [address] [address] 02/09/2020 10:54:17 02/09/2020 12:39:54 Routine care 664442190 Z34.01 [id number] MD Ramos Styles [address],[place] [address] 03/12/2020 11:17:56 03/13/2020 03:50:06 [id number] MD Ramos Styles [address],[place] [address] 03/12/2020 11:20:43 03/12/2020 13:50:50 Routine care 057093526 Z34.01 [id number] Emily Lara [facility] [address],[place] [address] 04/02/2020 11:23:13 04/03/2020 14:28:45 Routine care 456913235 Z34.92 [id number] MD Ramos Styles [address],[place] [address] 04/02/2020 11:24:17 04/02/2020 13:11:16 screening for malformation 379657666 Z36.3 [id number] MD Ramos Styles [address],[place] [address] 04/30/2020 09:26:05 04/30/2020 10:22:45 AND/OR placental disorder affecting management of mother 13923029 O43.92 Z3A.24 [id number] Keenan Nj MD [facility] [address],[place] [address] 04/30/2020 09:26:46 04/30/2020 10:54:06 Routine care 170154162 Z34.01 [id number] Keenan Nj MD [place] [address],[place] [address] 05/28/2020 09:24:50 05/28/2020 16:16:16 AND/OR placental disorder affecting management of mother 92513905 O43.93 Keenan Nj MD [place] [address],[place] [address] 05/28/2020 09:25:03 05/28/2020 11:09:05 Routine care 846011780 Z34.01 [id number] [facility] [address],[place] [address] 06/02/2020 11:19:21 06/02/2020 11:47:20 [id number] Keenan Nj MD [place] [address],[place] [address] 06/11/2020 09:28:07 06/11/2020 10:22:34 AND/OR placental disorder affecting management of mother 61715952 O43.103 Z3A.30 [id number] Keenan Nj MD [place] [address],[place] [address] 06/11/2020 09:28:25 06/11/2020 10:48:17 Routine care 424177792 Z34.01 [id number] Emily Lara CNM [place] [address],[place] [address] 06/27/2020 11:43:07 06/27/2020 12:35:42 Routine care 368142319 Z34.92 [id number] Emily Lara CNM [place] [address],[place] [address] 07/11/2020 09:24:21 07/11/2020 11:37:37 Routine care 270379189 Z34.92 [id number] Keenan Nj MD [place] [address],[place] [address] 07/11/2020 09:56:28 07/11/2020 12:10:00 AND/OR placental disorder affecting management of mother 08991404 O43.103 Z3A.34 [id number] [facility] [address],[place] [address] 07/25/2020 14:36:02 07/26/2020 16:00:15 Routine care 594916246 Z34.92 [id number] [facility] [address],[place] [address] 07/30/2020 11:45:24 07/30/2020 12:44:03 Routine care 599319078 Z34.92 [id number] Milagros Garcia MD [facility] [address],[place] [address] 08/06/2020 12:36:25 08/06/2020 17:50:16 AND/OR placental disorder affecting management of mother 36930760 O43.93 [id number] Milagros Garcia MD [facility] [address],[place] [address] 08/06/2020 12:37:15 08/06/2020 17:52:00 Routine care 129927609 Z34.03 [id number] [facility] [address],[place] [address] 08/14/2020 11:46:58 08/14/2020 12:09:39 Routine care 771058458 Z34.92 [id number] Emily Lara CNM [place] [address],[place] [address] 09/20/2020 10:14:35 09/20/2020 16:10:54 state 54155466 Z39.2 Continue to watch for signs/symp toms of post depression . Return one year from last pap smear for a well woman exam. Will return for wwe with her next depo in aprox 3 months (based on depo calendar). Patient received above instructio ns, and questions have been answered. If you have any questions please call or respond to this email. Patient was made aware of the patient portal and may obtain a paper copy of today's plan if desired Contracept ion care management 921292407 Z30.9 Discussed all options. Pt would like depo provera. Discussed risks including delayed return to fertility, abnormal bleeding, loss of bone density, and weight gain. Pt would like to proceed with injection. She will return early next week for injection. She has not resumed intercours e and I have instructed her not to resume until atleast 2 weeks after injection. Pt verbalized understand ing. [id number] Emily Lara CNM [place] [address],[place] [address] 09/27/2020 10:32:45 10/01/2020 16:20:41 Contraception care management 637487558 Z30.9 [id number] Emily Lara CNM [place] [address],[place] [address] 12/25/2020 16:34:57 12/27/2020 16:39:47 Contraception care management 839639113 Z30.9 [id number] Emily Lara CNM [place] [address] [address] 03/25/2021 13:43:17 03/25/2021 22:44:16 Contraception care management 694327435 Z30.9 [id number] Emily Lara CNM [place] [address],[place] [address] 06/17/2021 10:40:37 06/17/2021 11:25:49 Contraception care management 735133999 Z30.9 Gynecologi c examination 22424741 Z01.419 Take Calcium with Vitamin D 1200mg daily if not receiving in daily diet. It is strongly advised to have an annual flu shot and up can obtain at most pharmacies . If you have not had a TDap shot in the last 10 years you should obtain one as well. Discussed with patient & provided with informatio n regarding Gardisil vaccine to prevent the 4 strains for HPV that cause cervical cancer if under age 26. Encourage safe sexual practices, to use condoms and limit partners if not already in a monogamous relationsh ip. Do monthly self breast exams. Have mammogram yearly or every other year depending on family history. BRCA testing is now available for patients with strong genetic history of female cancer. If interested contact the office. Engage in daily exercise of low impact aerobic exercise 45-60 minutes 4-5 times weekly. Avoid tobacco and illicit drugs as well as using moderation with alcohol intake less than 1-2 8 oz beverages daily. This lifestyle behavior pattern will lead to less health conditions and longer life span. If BMI greater than 25 weight watchers or dietary consult advised.Lennon ppy with Depo and would like to continue. Patient received above instructio ns, and questions have been answered. If you have any questions please call or respond to this email. Patient was made aware of the patient portal and may obtain a paper copy of today's plan if desired. [id number] Emily Lara CNM [place] [address] [place] [address] 09/02/2021 10:19:12 09/02/2021 10:32:39 Contraception care management 931754463 Z30.9 [id number] [facility] [address] [place] [address] 11/18/2021 10:01:59 11/19/2021 19:44:04 Contraception care management 598444520 Z30.9 [id number] Keenan Nj MD [facility] [address] [address] 02/10/2022 09:58:22 02/11/2022 14:41:37 Contraception care management 532395682 Z30.9 [id number] Keenan Nj MD [place] [address] [place] [address] 12/08/2022 15:42:44 12/08/2022 16:29:48 [id number] [facility] [address] [address] 12/08/2022 15:43:04 12/08/2022 17:34:46 Amenorrhea 72173125 N91.2 Gynecologi c examination 20688210 Z01.419 test positive 970003906 Z32.01 Risk factors addressed: Tobacco Cessation, Safe Sexual Practices, environmen gilda, work hazards, travel restrictio ns, seat belt use.Eat a health well balanced diet, avoid alcohol, tobacco, and street drugs.Enga ge in daily low impact exercise, avoid temperatur e extremes, and cat, rodent, and bird feces.Avoi d travel to areas where zika virus is a concern.Of fered cf/sma/nip t. Desires testing. Handouts given and discussed with patient. ildbirth classes recommende d.New OB sheet given.If previous , counseling .Pt verbalizes that she understand s the importance of above instructio ns.All questions were answered.P atient reminded to have annual well woman examinatio n and address preventati [facility] . [id number] EDWIGE Thompson [facility] [address] [address] 02/03/2024 16:32:31 02/03/2024 17:43:58 Gynecologic examination 35500239 Z01.419 WWEpap due 2025declin ed STI screenenco uraged annual exam with [facility] in 1 yr for WWE or sooner if needed Take Calcium with Vitamin D daily if not receiving in daily diet.It is strongly advised to have an annual flu shot and up can obtain at most pharmacies . If you have not had a TDap shot in the last 10 years you should obtain one as well. Discussed with patient & provided with informatio n regarding Gardisil vaccine to prevent the 4 strains for HPV that cause cervical cancer if under age 26.Encoura ge safe sexual practices, to use condoms and limit partners if not already in a monogamous relationsh ip.Do monthly self breast exams. BRCA testing is now available for patients with strong genetic history of female cancer. If interested contact the office. Engage in regular exercise. Avoid tobacco and illicit drugs. This lifestyle behavior pattern will lead to less health conditions and longer life span. If BMI greater than 25 dietary consult advised. Patient received above instructio ns, and questions have been answered. If you have any questions please call or respond to this email. Patient was made aware of the patient portal and may obtain a paper copy of today's plan if desired. [facility] management [id number] Z30.9 doing well on Depo and desires to continuer/ b/a reviewedpt aware of risk of weight gain and possible bone density lossrefill s sent x 12 months [id number] MD Ramos Styles [address],[place] [address] 01/12/2023 10:50:50 01/12/2023 11:30:00 screening 846115714 Z36.82 [id number] MD Ramos Styles [address],[place] [address] 01/12/2023 10:51:46 01/12/2023 15:57:21 Routine care 160729049 Z34.01 [id number] MD Ramos Styles [address],[place] [address] 02/09/2023 11:20:25 02/09/2023 13:03:53 Routine care 015514576 Z34.01 [id number] MD Ramos Styles [address],[place] [address] 02/09/2023 11:21:41 02/09/2023 12:52:45 [id number] MD Ramos Styles [address],[place] [address] 03/16/2023 10:23:06 03/16/2023 11:26:59 screening for malformation 841370353 Z36.3 [id number] MD Ramos Sytles [address],[place] [address] 03/16/2023 11:23:07 03/16/2023 12:23:36 Routine care 919290113 Z34.01 [id number] MD Ramos Styles [address],[place] [address] 04/15/2023 15:21:43 04/15/2023 16:58:21 Placenta circumvallata 8964842 O43.112 Z3A.24 [id number] Keenan Nj MD [facility] [address],[place] [address] 04/15/2023 15:24:24 04/15/2023 16:57:42 Routine care 605541896 Z34.01 [id number] Keenan Nj MD [facility] [address] [address],[place] [address] 05/18/2023 09:14:32 05/18/2023 10:52:27 Placenta circumvallata [id number] O43.113 Z3A.29 [id number] Keenan Nj MD [facility] [address],[place] [address] 05/18/2023 09:15:26 05/18/2023 11:35:26 Routine care 604731938 Z34.01 [id number] Keenan Nj MD [facility] [address],[place] [address] 06/01/2023 10:07:55 06/01/2023 11:18:24 Routine care [id number] Z34.01 [id number] Keenan Nj MD [facility] [address],[place] [address] 06/15/2023 10:21:22 06/15/2023 11:54:15 Hypothyroidism in 331014531 E03.9 [id number] MD Ramos Styles [address],[place] [address] 06/16/2023 10:24:54 06/16/2023 10:53:38 Placenta circumvallata 9037140 O43.113 Z3A.33 [id number] [facility] [address],[place] [address] 07/01/2023 13:55:27 07/01/2023 14:31:53 Routine care [id number] Z34.93 [id number] MD Ramos Styles [address],[place] [address] 1 07/13/2023 13:54:47 07/13/2023 15:23:00 Placenta circumvallata [id number] O43.113 Z3A.37 [id number] Lou Petersen [facility] [address],[place] [address] 07/15/2023 15:02:33 07/15/2023 15:24:49 Routine care [id number] Z34.93 [id number] Lou Petersen [facility] [address],[place] [address] 07/22/2023 13:49:15 07/22/2023 14:39:44 [id number] Keenan Nj MD [facility] [address],[place] [address] 1 07/22/2023 14:39:52 07/22/2023 15:34:18 Hypothyroidism in [id number] E03.9 Z3A.38 [id number] Lou Petersen [facility] [address],[place] [address] 09/04/2023 13:51:57 09/04/2023 14:32:17 care [id number] Z39.2 abstain until depoprover a, plans on injection next week f/u wwe in 4-6mo [id number] EDWIGE Thompson [facility] [address],[place] [address] 02/03/2024 16:50:16 02/03/2024 17:43:46 Contraception care management [id number] Z30.9 [id number] EDWIGE Thompson [facility] [address],[place] [address] 04/25/2024 14:50:24 04/25/2024 15:11:28 Contraception care management 850406915 Z30.9 [id number] Erica Newman TY [facility] [address],[place] [address] 07/11/2024 09:48:54 07/11/2024 10:08:27 Contraception care management [id number] Z30.9 [id number] Keenan Nj MD [facility] [address],[place] [address] 09/26/2024 09:42:18 09/28/2024 22:55:50 Contraception care management [id number] Z30.9 [id number] Lou Petersen [facility] [address],[place] [address] 12/12/2024 09:49:17 12/12/2024 15:21:11 Contraception care management 978778789 Z30.9 [id number] Keenan Nj MD [facility] [address],[place] [address] 02/27/2025 09:49:24 02/27/2025 21:48:59 Contraception care management [id number] Z30.8 [id number] Lou Petersen, [facility] [address],[place] [address] 05/18/2025 10:52:05 05/18/2025 11:17:18 Surveillance of depot contraception 130582421 Z30.42 [id number] Health Concerns Section Related Observation LastModified by Organization Detai ls LastModified Time None Recorded Concern Status LastModified by Organization Details LastModified Time None Recorded Advance Directives Directive N: Payers Insurance Date Sequence Insurance Name Policy Number Policy Rojas Covered Member ID Rojas Member ID Guarantor Name 05/18/2025 1 [place] [id number] [facility] [id number] 02/27/2025 1 *SELF PAY* [facility] 03/12/2020 1 [employer] - DOS PRIOR TO 21 - [facility] BENEFITS PLAN Bonnie Avila [id number] [facility] 10/29/2021 1 [place] [id number] [facility] [id number] [facility] 11/21/2020 1 UNSPECIFIED REMIT PAYOR [facility] 02/24/2025 1 [place] [id number] Chaitanya [facility] [id number] [facility] Episode Ob Episode Information Episode Created Date Number of Fetuses Patient Bloodtype Patient rh Status Prepregnancy Weight lbs Domestic Partner Domestic Partner Phone Father Name 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/20 20 1 O Positive 129 CLOSED Fetus Data First Name Last Name Admitted to NICU Weight (g) Sex Living Outcome Pediatric Complications Fetus ID Race Codes Race Delivery Type 3600.38 65 F Full Term 1976 Vaginal Delivery Problems Problem Notes Problem Name Start Date End Date Resolution Snomed Code Not e 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 bilobed placenta - serial growth u/s Michael Calculation Initial Michael Date Initial Exam Date Initial Exam Provider Initial Ultrasound Date Last Menstrual Period Date Ultra Sound Weeks Gestation 08/18/2020 02/09/2020 12/29/2019 11/12/2019 6 Eighteen To Twenty Week Michael Update Ultra Sound Date Fundal Height At Umbil Quickening Date Ultra Sound Latest Weeks Gestation Final Michael Confirmed By Final Michael Confirmed Date Final Michael Date Ultra Sound Latest Days Gestation 0 [email or web address] 02/09/2020 08/18/20 20 0 Pre-cordelia Flowsheet Flowsheet Date 02/09/2020 Moreno Score Blood Edema Fundus Height Fundus Units Glucose Ketones Leukocytes Nitrite Labor Signs Protein Cervic Dilation Cervic Effacement Cervic Station Type Weight in lbs Pre/Post Dialysis Refused BP Diastolic BP Location Tested BP Systolic BP Type Fetus Heart Rate Present Fetus Movement Comments Flowsheet Date 02/09/2020 Moreno Score Blood Edema Fundus Height Fundus Units Glucose Ketones Leukocytes Nitrite Labor Signs Protein Cervic Dilation Cervic Effacement Cervic Station 12 Type Weight in lbs Pre/Post Dialysis Refused Weight 123.213813608478 BP Diastolic BP Location Tested BP Systolic BP Type 77 123 Fetus Heart Rate Present A 162 Fetus Movement A No Comments This patient is a 24-year-ol d 1 para 0 at 12 weeks gestation. She has no history or risk factors that are a concern for this . We will start routine care. Flowsheet Date 03/12/2020 Moreno Score Blood Edema Fundus Height Fundus Units Glucose Ketones Leukocytes Nitrite Labor Signs Protein Cervic Dilation Cervic Effacement Cervic Station Type Weight in lbs Pre/Post Dialysis Refused BP Diastolic BP Location Tested BP Systolic BP Type Fetus Heart Rate Present Fetus Movement Comments Flowsheet Date 03/12/2020 Moreno Score Blood Edema Fundus Height Fundus Units Glucose Ketones Leukocytes Nitrite Labor Signs Protein Cervic Dilation Cervic Effacement Cervic Station 17 trace Type Weight in lbs Pre/Post Dialysis Refused Weight 125.019859385193 BP Diastolic BP Location Tested BP Systolic BP Type 78 123 Fetus Heart Rate Present A 154 Fetus Movement A Yes Comments Flowsheet Date 04/02/2020 Moreno Score Blood Edema Fundus Height Fundus Units Glucose Ketones Leukocytes Nitrite Labor Signs Protein Cervic Dilation Cervic Effacement Cervic Station Type Weight in lbs Pre/Post Dialysis Refused BP Diastolic BP Location Tested BP Systolic BP Type Fetus Heart Rate Present Fetus Movement Comments Flowsheet Date 04/02/2020 Moreno Score Blood Edema Fundus Height Fundus Units Glucose Ketones Leukocytes Nitrite Labor Signs Protein Cervic Dilation Cervic Effacement Cervic Station trace Type Weight in lbs Pre/Post Dialysis Refused Weight 129.018700950805 BP Diastolic BP Location Tested BP Systolic BP Type 75 118 Fetus Heart Rate Present Fetus Movement Comments Pt is having a girl Jayme Soler. Doing well. No complaints. Flowsheet Date 04/30/2020 Moreno Score Blood Edema Fundus Height Fundus Units Glucose Ketones Leukocytes Nitrite Labor Signs Protein Cervic Dilation Cervic Effacement Cervic Station Type Weight in lbs Pre/Post Dialysis Refused BP Diastolic BP Location Tested BP Systolic BP Type Fetus Heart Rate Present Fetus Movement Comments Flowsheet Date 04/30/2020 Moreno Score Blood Edema Fundus Height Fundus Units Glucose Ketones Leukocytes Nitrite Labor Signs Protein Cervic Dilation Cervic Effacement Cervic Station 23 Type Weight in lbs Pre/Post Dialysis Refused Weight 134.090473500095 BP Diastolic BP Location Tested BP Systolic BP Type 73 120 Fetus Heart Rate Present A 145 Fetus Movement A Yes Comments trouble getting to sleep , g iven recommendations Flowsheet Date 05/28/2020 Moreno Score Blood Edema Fundus Height Fundus Units Glucose Ketones Leukocytes Nitrite Labor Signs Protein Cervic Dilation Cervic Effacement Cervic Station Type Weight in lbs Pre/Post Dialysis Refused BP Diastolic BP Location Tested BP Systolic BP Type Fetus Heart Rate Present Fetus Movement Comments Flowsheet Date 05/28/2020 Moreno Score Blood Edema Fundus Height Fundus Units Glucose Ketones Leukocytes Nitrite Labor Signs Protein Cervic Dilation Cervic Effacement Cervic Station 26 Type Weight in lbs Pre/Post Dialysis Refused Weight 140.088177848676 BP Diastolic BP Location Tested BP Systolic BP Type 76 L arm 121 sitting Fetus Heart Rate Present A 145 Fetus Movement A Yes Comments no growth US today Flowsheet Date 06/02/2020 Moreno Score Blood Edema Fundus Height Fundus Units Glucose Ketones Leukocytes Nitrite Labor Signs Protein Cervic Dilation Cervic Effacement Cervic Station Type Weight in lbs Pre/Post Dialysis Refused BP Diastolic BP Location Tested BP Systolic BP Type Fetus Heart Rate Present Fetus Movement Comments Flowsheet Date 06/11/2020 Moreno Score Blood Edema Fundus Height Fundus Units Glucose Ketones Leukocytes Nitrite Labor Signs Protein Cervic Dilation Cervic Effacement Cervic Station Type Weight in lbs Pre/Post Dialysis Refused BP Diastolic BP Location Tested BP Systolic BP Type Fetus Heart Rate Present Fetus Movement Comments Flowsheet Date 06/11/2020 Moreno Score Blood Edema Fundus Height Fundus Units Glucose Ketones Leukocytes Nitrite Labor Signs Protein Cervic Dilation Cervic Effacement Cervic Station 28 neg Type Weight in lbs Pre/Post Dialysis Refused Weight 142.353459585928 BP Diastolic BP Location Tested BP Systolic BP Type 83 R arm 127 sitting Fetus Heart Rate Present A 140 Fetus Movement A Yes Comments nk growth on US today Flowsheet Date 06/27/2020 Moreno Score Blood Edema Fundus Height Fundus Units Glucose Ketones Leukocytes Nitrite Labor Signs Protein Cervic Dilation Cervic Effacement Cervic Station trace 32 Type Weight in lbs Pre/Post Dialysis Refused Weight 142.666697188289 BP Diastolic BP Location Tested BP Systolic BP Type 83 118 Fetus Heart Rate Present A 148 Fetus Movement A Yes Comments Pt doing well. Suspected adali ech per palpation. Will re-evaluate close to 36 weeks. Encouraged flu and tdap. Pre admit is scheduled. Flowsheet Date 07/11/2020 Moreno Score Blood Edema Fundus Height Fundus Units Glucose Ketones Leukocytes Nitrite Labor Signs Protein Cervic Dilation Cervic Effacement Cervic Station Type Weight in lbs Pre/Post Dialysis Refused BP Diastolic BP Location Tested BP Systolic BP Type Fetus Heart Rate Present Fetus Movement Comments Flowsheet Date 07/11/2020 Moreno Score Blood Edema Fundus Height Fundus Units Glucose Ketones Leukocytes Nitrite Labor Signs Protein Cervic Dilation Cervic Effacement Cervic Station trace Type Weight in lbs Pre/Post Dialysis Refused Weight 143.098008665822 BP Diastolic BP Location Tested BP Systolic BP Type 79 L arm 116 sitting Fetus Heart Rate Present Fetus Movement A Yes Comments Nausea and vomiting occasion al the last few days. Otherwise doing well. Precautions discussed including small frequent meals and to call if unable to keep anything down for 24 hours or if any other symptoms develop. U/S today and growth wnl and vertex presentation. Planning epidural for labor and will be bottle feeding. Exam per ZD, SNM. Flowsheet Date 07/25/2020 Moreno Score Blood Edema Fundus Height Fundus Units Glucose Ketones Leukocytes Nitrite Labor Signs Protein Cervic Dilation Cervic Effacement Cervic Station neg none 36 trace 3cm 70% -1 Type Weight in lbs Pre/Post Dialysis Refused Weight 147.560607880420 BP Diastolic BP Location Tested BP Systolic BP Type 83 132 Fetus Heart Rate Present A 145 Fetus Movement A Yes Comments Doing well. Labor precaution s. Flowsheet Date 07/30/2020 Moreno Score Blood Edema Fundus Height Fundus Units Glucose Ketones Leukocytes Nitrite Labor Signs Protein Cervic Dilation Cervic Effacement Cervic Station neg none 36 trace 3cm 70% -1 Type Weight in lbs Pre/Post Dialysis Refused Weight 145.5172977900 BP Diastolic BP Location Tested BP Systolic BP Type 80 125 Fetus Heart Rate Present A 130 Fetus Movement A Yes Comments Occasional contractions. Lab or precautions discussed. Flowsheet Date 08/06/2020 Moreno Score Blood Edema Fundus Height Fundus Units Glucose Ketones Leukocytes Nitrite Labor Signs Protein Cervic Dilation Cervic Effacement Cervic Station Type Weight in lbs Pre/Post Dialysis Refused BP Diastolic BP Location Tested BP Systolic BP Type Fetus Heart Rate Present Fetus Movement Comments Flowsheet Date 08/06/2020 Moreno Score Blood Edema Fundus Height Fundus Units Glucose Ketones Leukocytes Nitrite Labor Signs Protein Cervic Dilation Cervic Effacement Cervic Station 1+ 33 4cm 80% -2 Type Weight in lbs Pre/Post Dialysis Refused Weight 145.4713736843 BP Diastolic BP Location Tested BP Systolic BP Type 84 129 Fetus Heart Rate Present A 155 Fetus Movement Comments Doing ok. Intense ctx at nig ht but not regular. Good FM. US today EFW 59%, vertex, ANTWON 13. Flowsheet Date 08/14/2020 Moreno Score Blood Edema Fundus Height Fundus Units Glucose Ketones Leukocytes Nitrite Labor Signs Protein Cervic Dilation Cervic Effacement Cervic Station neg none 37 trace 4cm 80% -2 Type Weight in lbs Pre/Post Dialysis Refused Weight 147.912792625670 BP Diastolic BP Location Tested BP Systolic BP Type 80 138 Fetus Heart Rate Present A 145 Fetus Movement A Yes Comments Occasional contractions. Lab or precautions discussed. Pt would like MIL on Thursday if she has not delivered by then. Will schedule today. Menstrual History Last Menstrual Date Menses Monthly On Bcp Conception Prior Menses Frequency Hcg Plus Date Menarche Onset Age 0311/12/2019 Genetic Screening And Infection History Question Response Note Mental Retardation/Autism false Patient's Age Will Be 35 Years Or Older At Estim ated Date of Delivery false Thalassemia (Egyptian, Portuguese, Mediterranean, Or Background): MCV < 80 false Neural Tube Defect (Meningomyelocele, Spina Bifi da, Or Anencephaly) false Congenital Heart Defect false Down Syndrome false Braden-Sachs (eg, Judaism, Cajun, Palestinian-Belarusian) f alse Gentry Disease false Sickle Cell Disease Or Trait () false Hemophilia Or Other Blood Disorders false Muscular Dystrophy false Cystic Fibrosis false Stan's Chorea false Intellectual Disability/Autism false If Yes, Was Person Tested For Fragile X? false Other Inherited Genetic Or Chromosomal Disorder false Maternal Metabolic Disorder (eg, Type 1 Diabetes , PKU) false Patient Or Baby's Father Had A Child With Defects Not Listed Above false Recurrent Loss, Or A Stillbirth false Medications (including Suppl ements, Vitamins, Herbs, OTC Drugs), Illicit/Recreational Drugs, Alcohol false If Yes, Agent(s) And Strength/Dosage false Any Other Genetic History false Live With Someone With TB Or Exposed To TB false Patient Or Partner Has History Of Genital Herpes false Rash Or Viral Illness Since Last Menstrual Perio d false History Of STD, Gonorrhea, Chlamydia, HPV, Syphi lis false Other Infection History false History of HIV false History of Hepatitis false Prior GBS-infected child false Hemoglobinopathy Or Carrier false Other Structural Defect false Recent Travel History Outside of Country false Delivery Information Delivery Date Delivery Type Labor Anesthesia Weeks Gestation Incision Type Labor Labor Length Hrs Delivered By Post Complications Tubal Sterilization Discharge Date Comments 0 40.2 [email or web address] Discharge Information Feeding Method Contraceptive Method Maternal HG B and HCT Levels Ob Episode Information Episode Created Date Number of Fetuses Patient Bloodtype Patient rh Status Prepregnancy Weight lbs Domestic Partner Domestic Partner Phone Father Name 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 Status 01/13/20 23 1 O Positive 115 CLOSED Fetus Data First Name Last Name Admitted to NICU Weight (g) Sex Living Outcome Pediatric Complications Fetus ID Race Codes Race Delivery Type 3430.28 95 F true Full Term [id number] Vaginal Delivery Problems Problem Notes MFM appt - skipped jona ts - sent 06/01, cancel appointment, normal rhythm on next visit, growth ultrasound here Problem Name Start Date End Date Resolution Snomed Code Not e Intrauterine synechiae 5859694 00 follow hemorrhage 90646385 Secondary to bilobed placenta 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 SELFRESOLVED 106527312 06/16 u/s with MFM no longer needed per Beer - Normal FHR at appt on 06/15 Anemia 181848383 1 tab slow fe daily Michael Calculation Initial Michael Date Initial Exam Date Initial Exam Provider Initial Ultrasound Date Last Menstrual Period Date Ultra Sound Weeks Gestation 08/04/2023 01/12/2023 12/08/2022 5 Eighteen To Twenty Week Michael Update Ultra Sound Date Fundal Height At Umbil Quickening Date Ultra Sound Latest Weeks Gestation Final Michael Confirmed By Final Michael Confirmed Date Final Michael Date Ultra Sound Latest Days Gestation 0 [email or web address] 01/12/2023 08/02/20 23 0 Pre- Flowsheet Flowsheet Date 01/12/2023 Moreno Score Blood Edema Fundus Height Fundus Units Glucose Ketones Leukocytes Nitrite Labor Signs Protein Cervic Dilation Cervic Effacement Cervic Station Type Weight in lbs Pre/Post Dialysis Refused Weight 112.792252351824 BP Diastolic BP Location Tested BP Systolic BP Type 74 R arm 111 sitting Fetus Heart Rate Present Fetus Movement Comments This patient is a 27-year-ol d 2 para 1001 at 11 weeks gestation with a normal ultrasound today. She had an unremarkable 1st with a term vaginal . Medical, surgical, obstetric history is unremarkable. She is vaccinated for COVID. She was given recommendations on vaccines. We discussed care in detail. She will begin routine care. Flowsheet Date 02/09/2023 Moreno Score Blood Edema Fundus Height Fundus Units Glucose Ketones Leukocytes Nitrite Labor Signs Protein Cervic Dilation Cervic Effacement Cervic Station Type Weight in lbs Pre/Post Dialysis Refused BP Diastolic BP Location Tested BP Systolic BP Type Fetus Heart Rate Present Fetus Movement Comments Flowsheet Date 02/09/2023 Moreno Score Blood Edema Fundus Height Fundus Units Glucose Ketones Leukocytes Nitrite Labor Signs Protein Cervic Dilation Cervic Effacement Cervic Station 15 Type Weight in lbs Pre/Post Dialysis Refused Weight 113.175710097970 BP Diastolic BP Location Tested BP Systolic BP Type 76 R arm 127 sitting Fetus Heart Rate Present A 145 Fetus Movement Comments Synechiae today ultrasound. Low lateral. No complaints, no other problems, repeat ultrasound 4 weeks Flowsheet Date 03/16/2023 Moreno Score Blood Edema Fundus Height Fundus Units Glucose Ketones Leukocytes Nitrite Labor Signs Protein Cervic Dilation Cervic Effacement Cervic Station Type Weight in lbs Pre/Post Dialysis Refused BP Diastolic BP Location Tested BP Systolic BP Type Fetus Heart Rate Present Fetus Movement Comments Flowsheet Date 03/16/2023 Moreno Score Blood Edema Fundus Height Fundus Units Glucose Ketones Leukocytes Nitrite Labor Signs Protein Cervic Dilation Cervic Effacement Cervic Station none trace Type Weight in lbs Pre/Post Dialysis Refused Weight 115.033001810742 BP Diastolic BP Location Tested BP Systolic BP Type 61 R arm 112 sitting Fetus Heart Rate Present Fetus Movement A Yes Comments no complaints, no problems, reviewed hemorrhage in bilobed placenta from her history, discussed circumvallate placenta and synechiae Flowsheet Date 04/15/2023 Moreno Score Blood Edema Fundus Height Fundus Units Glucose Ketones Leukocytes Nitrite Labor Signs Protein Cervic Dilation Cervic Effacement Cervic Station Type Weight in lbs Pre/Post Dialysis Refused BP Diastolic BP Location Tested BP Systolic BP Type Fetus Heart Rate Present Fetus Movement Comments Flowsheet Date 04/15/2023 Moreno Score Blood Edema Fundus Height Fundus Units Glucose Ketones Leukocytes Nitrite Labor Signs Protein Cervic Dilation Cervic Effacement Cervic Station 24 Type Weight in lbs Pre/Post Dialysis Refused Weight 126.59227955864 BP Diastolic BP Location Tested BP Systolic BP Type 73 R arm 133 sitting Fetus Heart Rate Present A 145 Fetus Movement A Yes Comments no problems, routine care, u ltrasound today -normal growth, persistent synechiae Flowsheet Date 05/18/2023 Moreno Score Blood Edema Fundus Height Fundus Units Glucose Ketones Leukocytes Nitrite Labor Signs Protein Cervic Dilation Cervic Effacement Cervic Station Type Weight in lbs Pre/Post Dialysis Refused BP Diastolic BP Location Tested BP Systolic BP Type Fetus Heart Rate Present Fetus Movement Comments Flowsheet Date 05/18/2023 Moreno Score Blood Edema Fundus Height Fundus Units Glucose Ketones Leukocytes Nitrite Labor Signs Protein Cervic Dilation Cervic Effacement Cervic Station Type Weight in lbs Pre/Post Dialysis Refused Weight 130.904074205361 BP Diastolic BP Location Tested BP Systolic BP Type 74 R arm 120 sitting Fetus Heart Rate Present A 145 Fetus Movement A Yes Comments No complaints, no problems, and synechiae resolved, good growth, TSH next visit Flowsheet Date 06/01/2023 Moreno Score Blood Edema Fundus Height Fundus Units Glucose Ketones Leukocytes Nitrite Labor Signs Protein Cervic Dilation Cervic Effacement Cervic Station neg none 31 none trace Type Weight in lbs Pre/Post Dialysis Refused Weight 132.511966391404 BP Diastolic BP Location Tested BP Systolic BP Type 75 115 Fetus Heart Rate Present A 145 Fetus Movement A Yes Comments TSH today, Potential a rrhythmia appreciated today, to see MFM. Multiple frequent dropped beats, growth ultrasound next visit. Flowsheet Date 06/15/2023 Moreno Score Blood Edema Fundus Height Fundus Units Glucose Ketones Leukocytes Nitrite Labor Signs Protein Cervic Dilation Cervic Effacement Cervic Station 33 Type Weight in lbs Pre/Post Dialysis Refused Weight 132.426270132289 BP Diastolic BP Location Tested BP Systolic BP Type 70 R arm 116 sitting Fetus Heart Rate Present A 145 Fetus Movement Comments pt. is scheduled w/mfm tomor row 06/16 for potential arrhythmia., normal rhythm today, to cancel MFM tomorrow, to have growth ultrasound here Flowsheet Date 06/16/2023 Moreno Score Blood Edema Fundus Height Fundus Units Glucose Ketones Leukocytes Nitrite Labor Signs Protein Cervic Dilation Cervic Effacement Cervic Station Type Weight in lbs Pre/Post Dialysis Refused BP Diastolic BP Location Tested BP Systolic BP Type Fetus Heart Rate Present Fetus Movement Comments Flowsheet Date 07/01/2023 Moreno Score Blood Edema Fundus Height Fundus Units Glucose Ketones Leukocytes Nitrite Labor Signs Protein Cervic Dilation Cervic Effacement Cervic Station 33 Type Weight in lbs Pre/Post Dialysis Refused Weight 134.563296963012 BP Diastolic BP Location Tested BP Systolic BP Type 77 L arm 118 sitting Fetus Heart Rate Present A 145 Absent Fetus Movement Comments Emily delivered last baby an d would prefer a female for delivery, wants IOL around 39 weeks, will discuss, precautions reviewed, gbs collected cervix ft soft Flowsheet Date 07/13/2023 Moreno Score Blood Edema Fundus Height Fundus Units Glucose Ketones Leukocytes Nitrite Labor Signs Protein Cervic Dilation Cervic Effacement Cervic Station Type Weight in lbs Pre/Post Dialysis Refused BP Diastolic BP Location Tested BP Systolic BP Type Fetus Heart Rate Present Fetus Movement Comments Flowsheet Date 07/15/2023 Moreno Score Blood Edema Fundus Height Fundus Units Glucose Ketones Leukocytes Nitrite Labor Signs Protein Cervic Dilation Cervic Effacement Cervic Station neg none 35 none trace 3cm 70% -2 Type Weight in lbs Pre/Post Dialysis Refused Weight 138.040472847878 BP Diastolic BP Location Tested BP Systolic BP Type 76 124 Fetus Heart Rate Present A 146 Present Fetus Movement A Yes Comments patient states that having s ome contractions, nausea and vomiting. IOL 07/27 in the am if undelivered before then. +FM education and precautions . ambien #10 5mg prn to help sleep Flowsheet Date 07/22/2023 Moreno Score Blood Edema Fundus Height Fundus Units Glucose Ketones Leukocytes Nitrite Labor Signs Protein Cervic Dilation Cervic Effacement Cervic Station neg none none trace 3cm 80% -1 Type Weight in lbs Pre/Post Dialysis Refused Weight [id number] BP Diastolic BP Location Tested BP Systolic BP Type 82 124 Fetus Heart Rate Present Fetus Movement A Yes Comments patient is having some contr actions, nausea and vomiting. NST today. IOL on thursday if undelivered, precautions reviewed education, was in ED for N/V, got fluids Flowsheet Date 07/22/2023 Moreno Score Blood Edema Fundus Height Fundus Units Glucose Ketones Leukocytes Nitrite Labor Signs Protein Cervic Dilation Cervic Effacement Cervic Station Type Weight in lbs Pre/Post Dialysis Refused BP Diastolic BP Location Tested BP Systolic BP Type Fetus Heart Rate Present Fetus Movement Comments Menstrual History Last Menstrual Date Menses Monthly On Bcp Conception Prior Menses Frequency Hcg Plus Date Menarche Onset Age Genetic Screening And Infection History Question Response Note Mental Retardation/Autism false Patient's Age Will Be 35 Yea rs Or Older At Estimated Date of Delivery false Thalassemia (Egyptian, Portuguese, Mediterranean, Or Background): MCV < 80 false Neural Tube Defect (Meningom yelocele, Spina Bifida, Or Anencephaly) false Congenital Heart Defect false Down Syndrome true cousin's baby Braden-Sachs (eg, Judaism, Cajun, Palestinian-Belarusian) f alse Gentry Disease false Sickle Cell Disease Or Trait () false Hemophilia Or Other Blood Disorders false Muscular Dystrophy false Cystic Fibrosis false [place] Ch[place] false Intellectual Disability/Autism false If Yes, Was Person Tested For Fragile X? false Other Inherited Genetic Or Chromosomal Disorder false Maternal Metabolic Disorder (eg, Type 1 Diabetes , PKU) false Patient Or Baby's Father Had A Child With Defects Not Listed Above false Recurrent Loss, Or A Stillbirth false Medications (including Suppl ements, Vitamins, Herbs, OTC Drugs), Illicit/Recreational Drugs, Alcohol false If Yes, Agent(s) And Strength/Dosage false Any Other Genetic History false Live With Someone With TB Or Exposed To TB false Patient Or Partner Has History Of Genital Herpes false Rash Or Viral Illness Since Last Menstrual Perio d false History Of STD, Gonorrhea, Chlamydia, HPV, Syphi lis false Other Infection History false History of HIV false History of Hepatitis false Prior GBS-infected child false Hemoglobinopathy Or Carrier false Other Structural Defect false Recent Travel History Outside of Country false Delivery Information Delivery Date Delivery Type Labor Anesthesia Weeks Gestation Incision Type Labor Labor Length Hrs Delivered By Post Complications Tubal Sterilization [facility] Date [facility] Nicola Lou CNM Anemia, dysrhythm ia, Hypothyro idism, Intrauter ine synechiae , Placenta circumval valeri, Postpartu m hemorrhag e Discharge Information Feeding Method Contraceptive Method Maternal HG B and HCT Levels
[2025-07-09 01:42] VITALS: BP 141/124; PULSE 96; RESP 26; TEMP 36.8; O2SAT 96
--- NOTE | 2025-07-09 01:45 | ED.SOB ---
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 States she woke up short of breath approximately 2 hours ago. Feels like her traditional asthma just exacerbated. Ran out of her medications including albuterol at home. Recently did have bronchitis but otherwise no one sick around her. Endorses a nonproductive cough today. No fever chills or chest pain. Was otherwise in her normal state of health. Related Data Home Medications ?Medication ?Instructions ?Recorded ?Confirmed ?Last Taken ?Type vit no.95-ferrous 1 tablet PO DAILY 07/19/20 07/23/23 07/22/23 07:00 History fumarate 28 mg-folic acid 800 mcg tablet () levothyroxine 50 mcg tablet 50 mcg PO DAILY 07/06/23 07/21/23 07/22/23 07:00 History Allergies Allergy/AdvReac Type Severity Reaction Status Date / Time No Known Allergies Allergy Verified 07/09/25 01:46 [employer]LE W[employer] PUMP OPERATOR Review of Systems Review of Systems: As reviewed above in HPI [facility] Past Medical History Medical History (Reviewed 07/09/25 @ 01:46 PICKLE WATER PUMP OPERATOR by Gilles Eckert MD) Hypothyroidism and not yet delivered Family History Family History (Reviewed 07/09/25 @ 01:46 PICKLE WATER PUMP OPERATOR by Gilles Eckert MD) Other No pertinent family history Social History Social History (Reviewed 07/09/25 @ 01:46 PICKLE WATER PUMP OPERATOR by Gilles Eckert MD) Smoking status: Never smoker Second hand tobacco smoke exposure: No Substance use: never Lack of Transportation: No Lack of Food: Never True Current Housing: I Have Housing Concerned About Future Housing: No Difficulty Paying Gas/Electric Bills: No Difficulty Paying for Meds: No Currently Unemployed: No Education: High School Diploma/GED Difficulty w/ Childcare or Family Care: No Gender identity (if verbalized by the patient): Female Spiritual care concerns: No Exam Narrative: GENERAL: Dyspneic but able to converse. No retractions. Awake alert oriented. HEAD: [Normocephalic, atraumatic.] EYES: [PERRLA and EOMI.] ENT: Nares clear, no rhinorrhea or epistaxis. Mucous membranes moist. NECK: Supple. CHEST: End-expiratory wheezing bilaterally left worse than right, good aeration air entry. No retractions. Conversing in full sentences. Does appear slightly dyspneic. HEART: [Regular rate and rhythm]. No murmur heard. [Normal peripheral pulses.] ABDOMEN: [Soft, nondistended], [nontender], [No rigidity or guarding] EXTREMITIES: Normal range of motion. [No edema.] SKIN: Warm, dry, no rash. NEURO: [No focal deficits]. Alert and oriented [x3.] PSYCH: [Normal mood and affect.] Course Vital Signs Vital signs: Vital Signs Temperature 36.8 C 07/09/25 01:42 PICKLE WATER PUMP OPERATOR Pulse Rate 96 07/09/25 01:42 PICKLE WATER PUMP OPERATOR Respiratory Rate 26 H 07/09/25 01:42 PICKLE WATER PUMP OPERATOR Blood Pressure 141/124 H 07/09/25 01:42 PICKLE WATER PUMP OPERATOR Pulse Oximetry 96 07/09/25 01:42 PICKLE WATER PUMP OPERATOR Oxygen Delivery Room Air 07/09/25 01:42 PICKLE WATER PUMP OPERATOR Temperature 36.8 C 07/09/25 01:42 PICKLE WATER PUMP OPERATOR Pulse Rate 104 H 07/09/25 03:22 Respiratory Rate 16 07/09/25 03:22 Blood Pressure 141/124 H 07/09/25 01:42 PICKLE WATER PUMP OPERATOR Pulse Oximetry 100 07/09/25 02:15 Oxygen Delivery Room Air 07/09/25 02:15 Fraction of Inspired Oxygen 21 07/09/25 02:15 MDM - SOB/Dyspnea MDM Narrative Medical decision making narrative: 30-year-old female with history of asthma presenting to the emergency department with an exacerbation of her asthma. States she woke up short of breath approximately 2 hours ago. Feels like her traditional asthma just exacerbated. Ran out of her medications including albuterol at home. Recently did have bronchitis but otherwise no one sick around her. Endorses a nonproductive cough today. No fever chills or chest pain. Was otherwise in her normal state of health. End-expiratory wheezing bilaterally left worse than right, good aeration air entry. No retractions. Conversing in full sentences. Does appear slightly dyspneic. Patient is hemodynamically stable with a pulse of 96 and a 96% saturation on room air. Mildly hypertensive. Will treat her for an asthma exacerbation based on clinical exam. Given albuterol and Atrovent as well as Decadron IM. X-ray obtained to rule out pneumonia or bronchitis. Patient re-evaluated and felt significant improvement after the albuterol and Atrovent. Moving good air without any scattered wheezing. Respiratory rate improved. Conversing in clear sentences. Will be discharged with albuterol inhaler and prednisone for several days. Given return precautions and PCP follow-up instructions. Medical Records Attestation: I reviewed the patient's medical records. Imaging Data Attestation: I personally reviewed and interpreted this imaging study as follows: My impression: No acute pneumonia Critical Care Time Critical Care Time Critical Care Time: Yes Total Critical Care Time: 35 Discharge Plan Discharge Clinical Impression: Acute asthma exacerbation Patient Disposition: Home Condition: Stable Instructions: Antibiotic Form, Asthma (ED) Additional Instructions: You were treated today for an asthma exacerbation with nebulization and steroids. We will send you home with continued steroid regimen for 5 days and albuterol refilled. Follow-up with your primary care provider. Return with any emergent concerns or recurrent symptoms. Patient Language: Kyrgyz Prescriptions: New prednisone 50 mg tablet 50 mg PO DAILY 5 Days Qty: 5 0RF albuterol sulfate 90 mcg/actuation HFA aerosol inhaler 2 puff inhalation QID PRN (Reason: shortness of breath or wheezing) Qty: 8.5 0RF No Action PNV no.95-ferrous fumarate-FA [] 28 mg iron- 800 mcg Tablet 1 tablet PO DAILY polysaccharide iron complex 150 mg iron Capsule 150 mg PO BIDWM Qty: 30 0RF levothyroxine 50 mcg Tablet 50 mcg PO DAILY ibuprofen 600 mg Tablet 600 mg PO Q6H PRN (Reason: Cramping) Qty: 30 0RF albuterol sulfate 90 mcg/actuation HFA aerosol inhaler 2 puff inhalation QID PRN (Reason: shortness of breath or wheezing) Qty: 8.5 0RF ondansetron 4 mg tablet,disintegrating 4 mg PO Q8H PRN (Reason: nausea and vomiting) Qty: 14 0RF nitrofurantoin monohyd/m-cryst [Macrobid] 100 mg capsule 100 mg PO Q12H 5 Days Qty: 10 0RF Rx Instructions: must administer with a meal/food Follow-up/Referrals: Lou Petersen CNM [Primary Care Provider, [employer]] Time of Disposition: 03:14
[2025-07-09] MEDS: dexAMETHasone SOD PHOS INJ 10 MG/ML 1 ML VIAL IM (01:48)
[2025-07-09 02:15] VITALS: PULSE 80; RESP 16; O2SAT 100
[2025-07-09] MEDS: IPRATROPIUM BR 0.02% INH SOLN 0.5 MG/2.5 ML VIAL 1 MG INHALATION (02:16)
[2025-07-09] MEDS: ALBUTEROL SULFATE NEB 2.5 MG/3 ML INH 10 MG INHALATION (02:16)
[2025-07-09 03:22] VITALS: PULSE 104; RESP 16
== END 2025-07-09 03:30 | disposition home or self-care (01) ==
PROVIDERS: Emergency Provider Student in an Organized Health Care Education/Training Program; PCP Advanced Practice Midwife
DX: J45.901 Unspecified asthma with (acute) exacerbation (principal)
CPT/HCPCS: 71045; 94640; 96372; 99283; J1100